=== PATIENT | female | born 1990 | race American Indian/Alaskan Native ===

== ENCOUNTER 2018-05-25 23:26 | Inpatient (IN) | payer MEDICAID ==
[2018-05-25 23:32] VITALS: BMI 37.5
--- NOTE | 2018-05-25 23:44 | ED PDOC ---
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 Patient also mentioned that earlier she had abdominal pain, she has no abdominal pain now. Reports no fever, chills, N/V/D, urinary symptoms, vaginal bleeding, or vaginal d/c currently. Reports that she is not sexually active. <Cari Mayer PA-C - Last Filed: 05/26/18 00:55> <Parvez Casey - Last Filed: 05/26/18 05:47> - General Chief Complaint: GI Problem Time Seen by Provider: 05/25/18 23:29 Past Medical History - Infectious Disease Hx of Infectious Diseases: None - Psychiatric Hx Substance Use: No - Anesthesia Hx Anesthesia: No <Cari Mayer PA-C - Last Filed: 05/26/18 00:55> Family/Social History Family/Social History: No Known Family HX Smoking Status: Never Smoked Hx Alcohol Use: No Hx Substance Use: No <Cari Mayer PA-C - Last Filed: 05/26/18 00:55> Allergies/Home Meds <Cari Mayer PA-C - Last Filed: 05/26/18 00:55> <Parvez Casey - Last Filed: 05/26/18 05:47> Allergies/Adverse Reactions: Allergies No Known Allergies Allergy (Verified 05/25/18 23:32) Review of Systems - Review of Systems Constitutional: absent: Fatigue, Fevers Respiratory: absent: SOB, Cough Cardiovascular: absent: Chest Pain, Palpitations Gastrointestinal: Abdominal Pain. absent: Vomiting Genitourinary Female: Vaginal Discharge. absent: Dysuria, Frequency Musculoskeletal: absent: Arthralgias, Back Pain Skin: absent: Rash, Skin Lesions <Cari Mayer PA-C - Last Filed: 05/26/18 00:55> Physical Exam Appearance: Positive for: Well-Appearing, Non-Toxic, Comfortable Pain Distress: None Mental Status: Positive for: Alert and Oriented X 3 - Systems Exam Head: Present: Atraumatic, Normocephalic Pupils: Present: PERRL Extroacular Muscles: Present: EOMI Conjunctiva: Present: Normal Mouth: Present: Moist Mucous Membranes Neck: Present: Normal Range of Motion Respiratory/Chest: Present: Clear to Auscultation, Good Air Exchange. No: Respiratory Distress, Accessory Muscle Use Cardiovascular: Present: Regular Rate and Rhythm, Normal S1, S2. No: Murmurs Abdomen: No: Tenderness, Distention, Peritoneal Signs Back: Present: Normal Inspection Upper Extremity: Present: Normal Inspection. No: Cyanosis, Edema Lower Extremity: Present: Normal Inspection. No: Edema Neurological: Present: GCS=15, CN II-XII Intact, Speech Normal Skin: Present: Warm, Dry, Normal Color. No: Rashes Psychiatric: Present: Alert, Oriented x 3, Normal Insight, Normal Concentration <Cari Mayer PA-C - Last Filed: 05/26/18 00:55> Medical Decision Making ED Course and Treatment: 05/25/18 23:44 Plan : - Uhcg - UA - Urine cx 05/26/18 00:37 Uhcg (-) UA +trace blood, (-) UTI. On reevaluation, patient remains awake alert and oriented 3 in no acute distress, reports no nausea, abdominal pain, vaginal bleeding or d/c. Results d/w the patient. Advised to follow up with the clinic in 1-2 days without fail. Return to the emergency room at any time for any new or worsening symptoms. Patient states she fully agrees with and understands discharge instructions. States that she agrees with the plan and disposition. Verbalized and repeated discharge instructions and plan. I have given the patient opportunity to ask any additional questions. <Cari Mayer PA-C - Last Filed: 05/26/18 00:55> ED Course and Treatment: 05/26/18 01:55 Pt now complaining of hearing voices. PES called. 05/26/18 05:28 Pt seen and evaluated by ERWIN Zepeda, who discussed case with psychiatrist retail consultant. Pt to be screened for involuntary admission at [facility]. 05/26/18 07:[address] Neal, pending [facility] PES screening and disposition. - Lab Interpretations Lab Results: Urine Color Yellow (YELLOW) 05/25/18 23:50 Urine Appearance Clear (CLEAR) 05/25/18 23:50 Urine pH 6.0 (4.7-8.0) 05/25/18 23:50 Ur Specific [place] >= 1.030 (1.005-1.035) 05/25/18 23:50 Urine Protein Negative mg/dL (<30 mg/dL) 05/25/18 23:50 Urine Glucose (UA) Negative mg/dL (NEGATIVE) 05/25/18 23:50 Urine Ketones Negative mg/dL (NEGATIVE) 05/25/18 23:50 Urine Blood Trace-intact (NEGATIVE) H 05/25/18 23:50 Urine Nitrate Negative (NEGATIVE) 05/25/18 23:50 Urine Bilirubin Negative (NEGATIVE) 05/25/18 23:50 Urine Urobilinogen 0.2 E.U./dL (<1 E.U./dL) 05/25/18 23:50 Ur Leukocyte Esterase Negative [place]abb[place]/uL (NEGATIVE) 05/25/18 23:50 Urine RBC 0 - 2 /hpf (0-2) 05/25/18 23:50 Urine WBC 1 - 3 /hpf (0-6) 05/25/18 23:50 Ur Epithelial Cells 4 - 5 /hpf (0-5) 05/25/18 23:50 Urine Bacteria Small /hpf (NONE) 05/25/18 23:50 <Parvez Casey - Last Filed: 05/26/18 05:47> - PA / [employer]ER [employer]LE [employer] / Resident Statement / has reviewed & agrees with the documentation as recorded. <Cari Mayer PA-C - Last Filed: 05/26/18 00:55> Disposition/Present on Arrival - Present on Arrival Any Indicators Present on Arrival: No History of DVT/PE: No History of Uncontrolled Diabetes: No Urinary Catheter: No History of Decub. Ulcer: No History Surgical Site Infection Following: None - Disposition Have Diagnosis and Disposition been Completed?: Yes Disposition Time: 00:30 Patient Plan: Discharge <Cari Mayer PA-C - Last Filed: 05/26/18 00:55> - Disposition Disposition Time: 07:00 Patient Plan: Transfer To <Parvez Casey - Last Filed: 05/26/18 05:47> - Disposition Diagnosis: Vaginal discharge, Suicidal ideations Patient Problems: Current Active Problems Problem Status Onset Vaginal discharge Acute Condition: STABLE Discharge Instructions (ExitCare): Vaginal Discharge in Adults Prescriptions: Ondansetron ODT [Zofran ODT] 4 mg PO DAILY PRN #20 odt PRN Reason: Nausea/Vomiting Referrals: [facility] [Outside] - Follow up with primary [facility] [Outside] - Follow up with primary Forms: [employer] (Slovenian)
[2018-05-26] LABS: URINE BILIRUBIN NEGATIVE (NEGATIVE); URINE BLOOD TRACE-INTACT (NEGATIVE); URINE GLUCOSE (UA) NEGATIVE (NEGATIVE); URINE LEUKOCYTE ESTERASE NEGATIVE Leu/uL (NEGATIVE); URINE PROTEIN NEGATIVE mg/dL (<30 mg/dL); URINE UROBILINOGEN 0.2 E.U./dL (<1 E.U./dL)
[2018-05-26 00:06] LABS: URINE APPEARANCE CLEAR (CLEAR); URINE COLOR YELLOW (YELLOW)
[2018-05-26 00:40] LABS: URINE RBC 0 - 2 /hpf (0-2)
[2018-05-26 00:43] LABS: URINE BACTERIA SMALL /hpf
[2018-05-26 02:30] LABS: BASO # 0.05 K/mm3 (0.0-2.0); BASO % 0.4 % (0.0-3.0); EOS # 0.2 (0.0-0.7); EOS % 2.1 % (1.5-5.0); HEMOGLOBIN 11.7 g/dL (12.0-16.0); LYMPH # 4.6 (1.2-3.4); LYMPH % 39.8 % (22.0-35.0); MEAN CELL VOLUME 71.4 fl (80.0-105.0); MEAN CORPUSCULAR HEMOGLOBIN 22.3 pg (25.0-35.0); MEAN CORPUSCULAR HGB CONC 31.2 g/dl (31.0-37.0); MEAN PLATELET VOLUME 9.9 fl (7.0-11.0); MONO # 0.6 (0.1-0.6); MONO % 5.1 % (1.0-6.0); RBC 5.25 10^6/uL (3.5-6.1); RED CELL DISTRIBUTION WIDTH 14.8 % (11.5-14.5); WHITE BLOOD COUNT 11.5 10^3/uL (4.5-11.0)
[2018-05-26 02:34] LABS: ALB/GLOB RATIO 1.2 (1.1-1.8); ALBUMIN 4.6 g/dL (3.0-4.8); ALT/SGPT 7 U/L (7-56); AST/SGOT 24 U/L (14-36); BLOOD UREA NITROGEN 14 mg/dL (7-21); CALCIUM 9.8 mg/dL (8.4-10.5); GFR NON-AFRICAN AMERICAN > 60
[2018-05-26 03:21] LABS: BARBITURATES, UR NEGATIVE (NEGATIVE); BENZODIAZEPINES, UR NEGATIVE (NEGATIVE); OPIATES, UR NEGATIVE (NEGATIVE); PHENCYCLIDINE, UR NEGATIVE (NEGATIVE)
[2018-05-26 03:23] LABS: ACETAMINOPHEN < 10.0 ug/ml (10.0-20.0); SALICYLATE < 1 mg/dL (2.0-20.0)
--- NOTE | 2018-05-26 07:04 | ED PDOC ---
Physical Exam Vital Signs Reviewed: Yes Vital Signs Temp Pulse Resp BP Pulse Ox 05/26/18 05:00 77 16 127/71 97 05/26/18 03:00 76 18 124/72 97 05/26/18 00:45 80 18 127/82 98 05/25/18 23:45 98.1 F 89 18 137/84 98 Temperature: Afebrile Blood Pressure: Normal Pulse: Regular Respiratory Rate: Normal Appearance: Positive for: Well-Appearing, Non-Toxic, Comfortable Medical Decision Making ED Course and Treatment: 05/26/18 07:[address] Casey with patient pending [facility] screening. 05/26/18 10:05 Spoke to PES sawyer helper who states patient may be discharged if [facility] does not accept for inpatient psychiatric admission 05/26/18 11:29 [facility] screener evaluated patient and does not deem her eligible for admission at this time. Patient adamantly stating she will kill herself. PES called again. 05/26/18 12:53 Patient is evaluated by Dr. Dior(psychiatry) at the bedside who states she will accept patient for admission. - Lab Interpretations Lab Results: Total Bilirubin 0.3 mg/dL (0.2-1.3) 05/26/18 02:08 AST 24 U/L (14-36) 05/26/18 02:08 ALT 7 U/L (7-56) 05/26/18 02:08 Alkaline Phosphatase 90 U/L (38-126) 05/26/18 02:08 Total Protein 8.5 g/dL (5.8-8.3) H 05/26/18 02:08 Albumin 4.6 g/dL (3.0-4.8) 05/26/18 02:08 Globulin 3.9 gm/dL 05/26/18 02:08 Albumin/Globulin Ratio 1.2 (1.1-1.8) 05/26/18 02:08 Urine Color Yellow (YELLOW) 05/25/18 23:50 Urine Appearance Clear (CLEAR) 05/25/18 23:50 Urine pH 6.0 (4.7-8.0) 05/25/18 23:50 Ur Specific [place] >= 1.030 (1.005-1.035) 05/25/18 23:50 Urine Protein Negative mg/dL (<30 mg/dL) 05/25/18 23:50 Urine Glucose (UA) Negative mg/dL (NEGATIVE) 05/25/18 23:50 Urine Ketones Negative mg/dL (NEGATIVE) 05/25/18 23:50 Urine Blood Trace-intact (NEGATIVE) H 05/25/18 23:50 Urine Nitrate Negative (NEGATIVE) 05/25/18 23:50 Urine Bilirubin Negative (NEGATIVE) 05/25/18 23:50 Urine Urobilinogen 0.2 E.U./dL (<1 E.U./dL) 05/25/18 23:50 Ur Leukocyte Esterase Negative Gabbie/uL (NEGATIVE) 05/25/18 23:50 Urine RBC 0 - 2 /hpf (0-2) 05/25/18 23:50 Urine WBC 1 - 3 /hpf (0-6) 05/25/18 23:50 Ur Epithelial Cells 4 - 5 /hpf (0-5) 05/25/18 23:50 Urine Bacteria Small /hpf (NONE) 05/25/18 23:50 05/26/18 02:08 05/26/18 02:08 Lab Results 05/26/18 02:08: Alcohol, Quantitative < 10 05/26/18 02:08: Salicylates < 1 L, Acetaminophen < 10.0 L 05/26/18 02:08: Sodium 140, Potassium 3.8, Chloride 105, Carbon Dioxide 27, Anion Gap 12, BUN 14, Creatinine 0.8, Est GFR ( Amer) > 60, Est GFR (Non- Af Amer) > 60, Random Glucose 78, Calcium 9.8, Magnesium 2.0, Total Bilirubin 0.3, AST 24, ALT 7, Alkaline Phosphatase 90, Total Protein 8.5 H, Albumin 4.6, Globulin 3.9, Albumin/Globulin Ratio 1.2 05/26/18 02:08: WBC 11.5 H, RBC 5.25, Hgb 11.7 L, Hct 37.5, MCV 71.4 L, MCH 22.3 L, MCHC 31.2, RDW 14.8 H, Plt Count 334, MPV 9.9, Neut % (Auto) 52.6, Lymph % (Auto) 39.8 H, [place] % (Auto) 5.1, Eos % (Auto) 2.1, Baso % (Auto) 0.4, Lymph # (Auto) 4.6 H, [place] # (Auto) 0.6, Eos # (Auto) 0.2, Baso # (Auto) 0.05, Absolute Neuts (auto) 6.04 05/26/18 02:00: Urine Opiates Screen Negative, Urine Methadone Screen Negative, Ur Barbiturates Screen Negative, Ur Phencyclidine Scrn Negative, Ur Amphetamines Screen Negative, U Benzodiazepines Scrn Negative, U Oth Cocaine Metabols Negative, U Cannabinoids Screen Positive H 05/25/18 23:50: Urine Color Yellow, Urine Appearance Clear, Urine pH 6.0, Ur Specific [place] >= 1.030, Urine Protein Negative, Urine Glucose (UA) Negative, Urine Ketones Negative, Urine Blood Trace-intact H, Urine Nitrate Negative, Urine Bilirubin Negative, Urine Urobilinogen 0.2, Ur Leukocyte Esterase Negative, Urine RBC 0 - 2, Urine WBC 1 - 3, Ur Epithelial Cells 4 - 5, Urine Bacteria Small I have reviewed the lab results: Yes Disposition/Present on Arrival - Present on Arrival Any Indicators Present on Arrival: No History of DVT/PE: No History of Uncontrolled Diabetes: No Urinary Catheter: No History of Decub. Ulcer: No History Surgical Site Infection Following: None - Disposition Have Diagnosis and Disposition been Completed?: Yes Diagnosis: Vaginal discharge, Malingering, Acute depression Disposition: HOSPITALIZED Disposition Time: 12:53 Patient Plan: Admission, Discharge Patient Problems: Current Active Problems Problem Status Onset Vaginal discharge Acute Malingering Acute Condition: STABLE Discharge Instructions (ExitCare): Depression, Adult (DC), Vaginal Discharge in Adults Prescriptions: Ondansetron ODT [Zofran ODT] 4 mg PO DAILY PRN #20 odt PRN Reason: Nausea/Vomiting Referrals: [facility] [Outside] - Follow up with primary [facility] [Outside] - Follow up with primary Forms: [employer] (Danish)
--- NOTE | 2018-05-26 09:17 | CARD ---
APPROVED REPORT Date of service: 05/26/2018 EKG Measurement Heart [id number] <Conclusion> Normal sinus rhythm Normal ECG
--- NOTE | 2018-05-26 12:58 | CON ---
DATE OF CONSULTATION: 05/26/2018 HISTORY OF PRESENT ILLNESS: In short, the patient is a 27-year-old female with not known previous psychiatric history. The patient came to the hospital for abdominal pain, vaginal bleeding, vaginal discharge. After the patient got to know that she is medically cleared for discharge, the patient started to complain of hearing voices and did not feel safe to be discharged. This automotive service writer got involved into the patient care because the patient presented uncooperative. She is not talking. The patient was seen by PES worker and psychiatrist on-call, Dr. Gonzales, recommended screening by [facility]. This automotive service writer attempted to speak to the patient in the morning time together with medical students as well as to residents. The patient presented to be uncooperative, unwilling to talk to this automotive service writer. Personal hygiene is very poor. The patient is malodorous. The patient laying down with eyes closed and not talking. Collateral information was obtained from the nursing staff. As per nursing staff, the patient was talking and was able to provide information at the time of admission, but later on, the patient became uncooperative and staff feels that most likely the patient has secondary gain. Besides that, the patient does not have history at [facility], and there is no option to review the past history. LABORATORY DATA: Labs reviewed which showed mild leukocytosis. Urinalysis showed blood trace. Toxicology was positive for cannabis. PHYSICAL EXAMINATION: VITAL SIGNS: Stable. MEDICATIONS: Reviewed. MENTAL STATUS EXAMINATION: As this automotive service writer described above, the patient has very poor personal hygiene, laying down with eyes closed, not participating in interview. IMPRESSION AND PLAN: Rule out negative symptoms of psychosis, rule out mood spectrum disorder, rule out malingering. Meanwhile, we will continue screening by [facility] because the patient does not want to talk, does not want to respond to any of the questions. We will follow up and advise accordingly. Thank you very much for letting me participate in the care of your patient. Addendum: [facility] did not accept pt, pt was willing to be admitted. pt was transferred to psych unit uneventfully, pt was started on risperdal and PRN meds. Barby Roper MD [facility] # [id number] MTDD
--- NOTE | 2018-05-26 13:44 | RAD ---
Date of service: 05/26/2018 HISTORY: psych clearance COMPARISON: No prior. FINDINGS: LUNGS: No active pulmonary disease. PLEURA: No significant pleural effusion identified, no pneumothorax apparent. CARDIOVASCULAR: No aortic atherosclerotic calcification present. Normal cardiac size. No pulmonary vascular congestion. OSSEOUS STRUCTURES: No significant abnormalities. VISUALIZED UPPER ABDOMEN: Normal. OTHER FINDINGS: None. IMPRESSION: No active disease.
[2018-05-26] MEDS ORDERED: Alum-Mag Hydrox-Simethicone Susp (30 mL) PO PRN (19:43)
[2018-05-26] MEDS ORDERED: Magnesium Hydroxide Susp 30 ml UD PO PRN (19:43)
--- NOTE | 2018-05-26 21:07 | PCM.BM ---
<Alex Klineel - Last Filed: 05/26/18 21:03> Treatment Plan Problems - Problems identified on initial assessmt Auditory Hallucinations Date Initiated: 05/26/18 Time Initiated: 19:00 Assessment reference: NA Status: Active Priority: 1 Altered Thought Process Date Initiated: 05/26/18 Time Initiated: 19:00 Assessment reference: NA Status: Active Priority: 2 Impaired Communication Date Initiated: 05/26/18 Time Initiated: 19:00 Assessment reference: NA Status: Active Priority: 3 Self Care Deficit Date Initiated: 05/26/18 Time Initiated: 19:00 Assessment reference: NA Status: Active Priority: 4 Ineffective Coping Date Initiated: 05/26/18 Time Initiated: 19:00 Assessment reference: NA Status: Active Priority: 5 Treatment assets and liabiliti Patient Assests: ADL independent, negotiates basic needs, good interpersonal skills Patient Liabilities: live alone, financial problems, poor support system - Milieu Protocol Maintain good personal hygiene: daily Encourage regular showers, every shift Remind patient to perform daily oral care, every shift Assist patient to perform ADL's Maintain personal safety: every shift Educate patient to report safety concerns to staff, every shift Monitor environment for contraband/sharps Medication safety: Monitor for expected outcome, potential side effects: every shift, Assess barriers to learning: every shift, Assess readiness for medication education: every shift Family Contact Family involvement: Suraj/NII not involved Family contact: Patient declines to allow family contact at present - Goals for Treatment Patient goals for treatment: get better Discharge/Continuing Care - Education Needs Education Needs: Patient Medication, Patient Diagnosis/Disease Process, Patient Coping Skills, Patient Anger Management skills, Patient Placement options, Patient Community resources, Patient Activities of Daily Living, Patient Pain, Patient Nutrition, Patient Uses of Medical Equipment, Patient Health Practices/Safety, Patient Personal Hygiene/Grooming, Patient Aftercare Safety Plan - Discharge Discharge Criteria: Tolerates medication w/o severe side effects <Sara Cortez - Last Filed: 05/27/18 11:55> Family Contact Family contact: Patient declines to allow family contact at present <Barby Roper - Last Filed: 05/27/18 14:17> - Diagnosis (1) psychosis Status: Acute Interventions: 05/27/18 14:18 Psychoeducation/psychotherapy Psychopharmacology/adjustment of medications as needed/ monitoring possible side effects Evaluate pt on daily basis Compliance with medications and follow up appointments Long acting medication if pt is noncompliant with pill form Suicide and homicide risk assessment and prevention, coping strategies, safety plan Relapse prevention Reduction of symptoms Improve functional status Possible assertive community treatment Cognitive behavioral therapy Family involvement Possible social skill training as outpatient (2) depression Status: Acute Interventions: 05/27/18 14:17 Psychoeducation Psychopharmacology/adjustment of medications as needed/ monitoring possible side effects Evaluate pt on daily basis Compliance with medications and follow up appointments Suicide and homicide risk assessment and prevention Relapse prevention Reduction of symptoms Improve functional status Family involvement As outpatient: cognitive behavioral therapy (3) Vaginal discharge Status: Acute Interventions: 05/27/18 14:18 Pt will be seen by medical team Additional consultation by specialists as needed Lab work as needed (CBC, CMP, TSH, free T4, UA, Urine test for females as needed) CXR as needed EKG <Heidi Odom - Last Filed: 05/30/18 15:26>
[2018-05-27 08:04] LABS: GLUCOSE,FASTING 95 mg/dL (65-110); HDL CHOLESTEROL 48 mg/dL (29-60)
[2018-05-27 08:14] LABS: LDL CHOLESTEROL 87 mg/dL (0-129)
--- NOTE | 2018-05-27 14:17 | PCM.PSYCH ---
Initial Psychiatric Evaluation - Initial Psychiatric Evaluation Type of Admission: Voluntary Legal Status: Capacity Chief Complaint (in patient's own words): "I heard voices, kill yourself/hang herself". Patient's Reaction to Hospitalization: 05/26/18 02:08 05/26/18 02:08 Lab Results 05/27/18 07:40: Fasting Glucose 95, Triglycerides 81, Cholesterol 158, LDL Cholesterol Direct 87, HDL Cholesterol 48 05/27/18 07:20: TSH 3rd Generation 0.35 L 05/26/18 02:08: Alcohol, Quantitative < 10 05/26/18 02:08: Salicylates < 1 L, Acetaminophen < 10.0 L 05/26/18 02:08: Sodium 140, Potassium 3.8, Chloride 105, Carbon Dioxide 27, Anion Gap 12, BUN 14, Creatinine 0.8, Est GFR ( Amer) > 60, Est GFR (Non- Af Amer) > 60, Random Glucose 78, Calcium 9.8, Magnesium 2.0, Total Bilirubin 0.3, AST 24, ALT 7, Alkaline Phosphatase 90, Total Protein 8.5 H, Albumin 4.6, Globulin 3.9, Albumin/Globulin Ratio 1.2 05/26/18 02:08: WBC 11.5 H, RBC 5.25, Hgb 11.7 L, Hct 37.5, MCV 71.4 L, MCH 22.3 L, MCHC 31.2, RDW 14.8 H, Plt Count 334, MPV 9.9, Neut % (Auto) 52.6, Lymph % (Auto) 39.8 H, [place] % (Auto) 5.1, Eos % (Auto) 2.1, Baso % (Auto) 0.4, Lymph # (Auto) 4.6 H, [place] # (Auto) 0.6, Eos # (Auto) 0.2, Baso # (Auto) 0.05, Absolute Neuts (auto) 6.04 05/26/18 02:00: Urine Opiates Screen Negative, Urine Methadone Screen Negative, Ur Barbiturates Screen Negative, Ur Phencyclidine Scrn Negative, Ur Amphetamines Screen Negative, U Benzodiazepines Scrn Negative, U Oth Cocaine Metabols Negative, U Cannabinoids Screen Positive H 05/25/18 23:50: Urine Color Yellow, Urine Appearance Clear, Urine pH 6.0, Ur Specific [place] >= 1.030, Urine Protein Negative, Urine Glucose (UA) Negative, Urine Ketones Negative, Urine Blood Trace-intact H, Urine Nitrate Negative, Urine Bilirubin Negative, Urine Urobilinogen 0.2, Ur Leukocyte Esterase Negative, Urine RBC 0 - 2, Urine WBC 1 - 3, Ur Epithelial Cells 4 - 5, Urine Bacteria Small Vital Signs Temp Pulse Resp BP Pulse Ox 05/27/18 06:14 98.2 F 70 16 133/77 05/26/18 17:45 98.5 F 90 18 126/85 100 05/26/18 15:02 76 18 107/74 100 05/26/18 13:45 72 16 110/72 99 05/26/18 12:30 77 16 122/69 100 05/26/18 10:32 97.9 F 82 16 129/82 99 05/26/18 05:00 77 16 127/71 97 05/26/18 03:00 76 18 124/72 97 05/26/18 00:45 80 18 127/82 98 05/25/18 23:45 98.1 F 89 18 137/84 98 History of Present Illness and Precipitating Events: shortly pt is 27 yo female with not known previous psych h/o, came to the ED with c/o 1 episode of clear vaginal discharge, abdominatl pain, pt was cleared by medical team, after that in ED pt reported "not feeling safe, hearing voices", PES was called, pt was in catatonic stage, was not able to provide any h/o, [facility] was contacted for involuntary commitment, pt was not accepted by [facility], this wrier evaluated pt in ED, pt presented to be disorganized, poor hygiene, said that she is hearing voices "hang yourself-kill yourself", pt required further evaluation and stabilization, med management, observation. Patient was seen at the treatment team meeting, patient presented to be guarded, paranoid, with psychomotor retardation, no meaningful conversation possible because severe thought blocking, and disorganized thoughts, majority of the answers "I do not know, I do not remember." Patient had very poor personal hygiene, very strong body odor, fair ADLs. Patient reported that she feels "so-so", patient reported that she came here for auditory hallucinations, but when this health underwriter asked about her primary complaint in ED (abdominal pain and vagina discharges), pt said that it was primary problem. pt said that abdominal pain resolved, patient also reported that voices are not bothering her today. Patient goal for treatment is "to stop hearing those voices." In regards of abdominal pain, patient reported that she gave to her son approximately 1 months ago at present moment her son is in foster care, DYFS involvement, son was taken away from the hospital. Will call for medical consult because recent , vaginal discharges, abdominal pain, foul smell are concerning to this health underwriter. Patient reported that she lives with her friend in [place], at the same time patient said "I do not remember what year", patient does not remember how she ended up in the hospital, patient also reported that she does not remember phone numbers for her family "it is too early, may be later on it will come back to me, you could speak to my sister September". Later one patient said that she is homeless. Patient reports having some difficulty with memory. Patient reports last completing the 12th grade but states she did not graduate high school. Patient denies drug use. Patient reports drinking alcohol 3x per week. Patient reports drinking 1 drink; tequila. Patient reports smoking 4 cigarettes per day. Patient refused Nicotine patch. Urine drug screen is positive for cannabis. Patient reports her boyfriend financially supports her. Patient reports her boyfriend is not aware of patient being hospitalized. Patient states that she does not remember. Patient reports no hx of abuse. Past psychiatric history: Denied. Medical history: Recent , vaginal discharges, abdominal pain. Family history: Patient denied. As per nursing report patient has history of incarcerations. By the end of the interview patient did not know where to go, appeared to be confused. 05/26/18 02:08 05/26/18 02:08 Lab Results 05/27/18 07:40: Fasting Glucose 95, Triglycerides 81, Cholesterol 158, LDL Cholesterol Direct 87, HDL Cholesterol 48 05/27/18 07:20: TSH 3rd Generation 0.35 L 05/26/18 02:08: Alcohol, Quantitative < 10 05/26/18 02:08: Salicylates < 1 L, Acetaminophen < 10.0 L 05/26/18 02:08: Sodium 140, Potassium 3.8, Chloride 105, Carbon Dioxide 27, Anion Gap 12, BUN 14, Creatinine 0.8, Est GFR ( Amer) > 60, Est GFR (Non- Af Amer) > 60, Random Glucose 78, Calcium 9.8, Magnesium 2.0, Total Bilirubin 0.3, AST 24, ALT 7, Alkaline Phosphatase 90, Total Protein 8.5 H, Albumin 4.6, Globulin 3.9, Albumin/Globulin Ratio 1.2 05/26/18 02:08: WBC 11.5 H, RBC 5.25, Hgb 11.7 L, Hct 37.5, MCV 71.4 L, MCH 22.3 L, MCHC 31.2, RDW 14.8 H, Plt Count 334, MPV 9.9, Neut % (Auto) 52.6, Lymph % (Auto) 39.8 H, [place] % (Auto) 5.1, Eos % (Auto) 2.1, Baso % (Auto) 0.4, Lymph # (Auto) 4.6 H, [place] # (Auto) 0.6, Eos # (Auto) 0.2, Baso # (Auto) 0.05, Absolute Neuts (auto) 6.04 05/26/18 02:00: Urine Opiates Screen Negative, Urine Methadone Screen Negative, Ur Barbiturates Screen Negative, Ur Phencyclidine Scrn Negative, Ur Amphetamines Screen Negative, U Benzodiazepines Scrn Negative, U Oth Cocaine Metabols Ne gative, U Cannabinoids Screen Positive H 05/25/18 23:50: Urine Color Yellow, Urine Appearance Clear, Urine pH 6.0, Ur Specific [place] >= 1.030, Urine Protein Negative, Urine Glucose (UA) Negative, Urine Ketones Negative, Urine Blood Trace-intact H, Urine Nitrate Negative, Urine Bilirubin Negative, Urine Urobilinogen 0.2, Ur Leukocyte Esterase Nega tive, Urine RBC 0 - 2, Urine WBC 1 - 3, Ur Epithelial Cells 4 - 5, Urine Bacteria Small Vital Signs Temp Pulse Resp BP Pulse Ox 05/27/18 06:14 98.2 F 70 16 133/77 05/26/18 17:45 98.5 F 90 18 126/85 100 05/26/18 15:02 76 18 107/74 100 05/26/18 13:45 72 16 110/72 99 05/26/18 12:30 77 16 122/69 100 05/26/18 10:32 97.9 F 82 16 129/82 99 05/26/18 05:00 77 16 127/71 97 05/26/18 03:00 76 18 124/72 97 05/26/18 00:45 80 18 127/82 98 05/25/18 23:45 98.1 F 89 18 137/84 98 The patient failed the outpatient lower level of care: Yes Current Medications: Active Medications Generic Name Dose Route Start Last Admin Trade Name Freq PRN Reason Stop Dose Admin Acetaminophen 650 mg 05/26/18 19:43 Tylenol 325mg Tab PO Q6H PRN Pain, moderate (4-7) Al Hydrox/Mg Hydrox/Simethicone 30 ml 05/26/18 19:43 Maalox Plus 30 Ml PO DAILY PRN Indigestion / Heartburn Lorazepam 2 mg 05/26/18 19:45 Ativan PO Q6H PRN Anxiety Protocol Lorazepam 2 mg 05/26/18 19:46 Ativan IM Q6H PRN Severe Agitation Protocol Magnesium Hydroxide 30 ml 05/26/18 19:43 Milk Of Magnesia PO DAILY PRN Constipation Risperidone 0.5 mg 05/26/18 22:00 05/27/18 10:46 Risperdal Tab PO 0.5 mg AMHS HERIBERTO Administration Protocol Trazodone HCl 50 mg 05/26/18 19:44 Desyrel PO HS PRN Insomnia Ziprasidone 20 mg 05/26/18 19:48 Geodon Cap PO Q6H PRN Agitation Protocol Ziprasidone 20 mg 05/26/18 19:49 Geodon Inj IM Q6H PRN Severe Agitation Protocol Present on Admission - Present on Admission Any Indicators Present on Admission: No Review of Systems - Review of Systems Systems not reviewed;Unavailable: Acuity of Condition - Constitutional Constitutional: As Per HPI - EENT Eyes: As Per HPI Ears: As Per HPI Nose/Mouth/Throat: As Per HPI - Breasts Breasts: As Per HPI - Cardiovascular Cardiovascular: As Per HPI - Respiratory Respiratory: As Per HPI - Gastrointestinal Gastrointestinal: As Per HPI - Genitourinary Genitourinary: As Per HPI - Reproductive: Female Reproductive:Female: As Per HPI - Menstruation Menstruation: As Per HPI - Musculoskeletal Musculoskeletal: As Per HPI - Integumentary Integumentary: As Per HPI - Neurological Neurological: As Per HPI - Psychiatric Psychiatric: As Per HPI - Endocrine Endocrine: As Per HPI - Hematologic/Lymphatic Hematologic: As Per HPI Past Patient History - Past Psychiatric History Previous Treatment History: None Prior Professional Help: See HPI Prior Psychiatric Treatment: See HPI At what hospital: See HPI Duration: See HPI Nature of Treatment: See HPI Explanation of prior treatment: See HPI - PSYCHIATRIC Hx Psychophysiologic Disorder: No Hx Substance Use: No - Infectious Disease Hx of Infectious Diseases: None - SURGICAL HISTORY Hx Surgeries: No Hx Section: Yes - ANESTHESIA Hx Anesthesia: No - Medical/Surgical History Reviewed & confirmed: by wv Meds Allergies/Adverse Reactions: Allergies Allergy/AdvReac Type Severity Reaction Status Date / Time No Known Allergies Allergy Verified 05/26/18 20:57 Mental Status Examination - Personal Presentation Personal Presentation: Looks older than stated age - Affect Affect: Flat - Motor Activity Motor Activity: Psychomotor Retardation - Reliability in Providing Information Reliability in Providing Information: Poor, due to alteration in thoughts, Poor, due to altered mood, Poor, due to cognitve impairment - Speech Speech: Disorganized - Mood Mood: Depressed - Formal Thought Process Formal Thought Process: Hallucinations - Obsessions/Compulsions Obsessions: None Compulsions: None - Cognitive Functions Orientation: Person, Place Sensorium: Alert Attention/Concentration: Easily distracted Abstract Thinking: [place] Judgement: Intact, as evidence by: Insight regarding need for hospitalization - Risk Risk: Self-mutilation, Diminished functioning - Strength & Assets Inventory Strength & Assets Inventory: Cooperative, Other (Physical health, no history of suicidal attempts, no history of psych admissions) - Limitations Limitations: Other (Patient is homeless, no support) Psychiatric Physical Exam - Physical Exam Reviewed and confirmed: Emergency Department Physical Exam Results - Vital Signs Recent Vital Signs: Last Vital Signs Temp 98.2 F 05/27/18 06:14 Pulse 70 05/27/18 06:14 Resp 16 05/27/18 06:14 BP 133/77 05/27/18 06:14 Pulse Ox 100 05/26/18 17:45 - Labs Result Diagrams: 05/26/18 02:08 05/26/18 02:08 Labs: Laboratory Results - last 24 hr 05/27/18 05/27/18 07:20 07:40 Fasting Glucose 95 Triglycerides 81 Cholesterol 158 LDL Cholesterol Direct 87 HDL Cholesterol 48 TSH 3rd Generation 0.35 L - EKG Data EKG Interpreted by: ER Physician EKG shows normal: Sinus rhythm DSM Plan - DSM 5 DSM 5 Diagnosis: Rule out psychosis Rule out depression Rule out major depressive disorder with psychosis cannabis abuse, rule out substance-induced psychosis - Recommended/Plan of Treatment Treatment Recommendations and Plan of Treatment: Milieu/structure/supportive therapy SW consultation for discharge plan and social issues Med management: Risperdal 0.5 mg twice a day for psychosis As needed medication Medical consult requested Family involvement Follow up on labs Will monitor closely Pt was educated about risk/benefits and alternatives of medications, coping strategies (safety plan, suicide prevention), relapse prevention, importance of follow up with psychiatrist and therapist, stay away from drugs/alcohol/smoking Projected ELOS: 7 days Prognosis: Guarded Discharge Plan and Discharge Criteria: Pt will be not depressed or manic, will be more hopeful, will be not psychotic or anxious, will be tolerating medications well, will not have major side effects, will be able to function, will not pose threat to self or others. - Tobacco Cessation Tobacco Use Status for the last 30 days: Light User(<=4 cigs daily, cigar/pipes not daily,or smokeless tobacco) Tobacco Use Treatment Practical Counseling Provided: Yes Tobacco Use Treatment FDA-Approved Cessation Medication Provided: Yes Reason for not providing: Patient refused tobacco cessation medication - Alcohol or Substance Abuse Does the patient have an Alcohol or Substance Abuse Disorder: Yes Initial Psych Certification - Initial Certification I certify that the inpatient psychiatric facility admission was medically necessary for either: Treatment which could reasonbly be expected to improve pt's condition I estimate of hospitalization is necessary for proper treatment of the patient: 7 Unit of Time: Days
--- NOTE | 2018-05-28 09:34 | PCM.PYCHPN ---
Psychiatric Progress Note - Psychiatric Progress Note Patient seen today, length of contact: 25 min Problems Identified/Issues Discussed: I reviewed assessment and recent notes. Patient was interviewed at bedside. She appears unkempt, disengaged and vague. Affect is guarded with continued PMR. Responses are brief but generally relevant to questioning. She tells me that she is feeling a little better and denies any new issues. She is still hallucinating and today she complains of "seeing things, people, trees in my room". Affect is constricted and a little flat. Patient has been in tenuous control. Denies side effects, discomfort or pain at this time. Sleep was restless last night. Staff have noted patient's poor personal hygiene and lack of motivation in her grooming since arriving on the unit. There were no behavioral issues overnight. Diagnostic Results: Rule out psychosis Rule out depression Rule out major depressive disorder with psychosis cannabis abuse, rule out substance-induced psychosis Medication Change: Yes (Risperdal increased and ativan started) Medical Record Reviewed: Yes Mental Status Examination - Cognitive Function Orientation: Person, Place Attention: Poor Concentration: Poor Association: Loose Fund of Knowledge: Poor - Mood Mood: Depressed - Affect Affect: Flat - Formal Thought Process Formal Thought Process: Hallucinations ("people and trees in my room") - Suicidal Ideation Suicidal Ideation: No - Homicidal Ideation Homicidal Ideation: No Goal/Treatment Plan - Goal/Treatment Plan Progress Toward Problem(s) and Goals/Treatment Plan: * c/w current tx and plan * Risperdal increased to 1 mg po AMHS, added ativan 0.5 mg po AMHS to help with fluency and for EPS prophylaxis * No new labs results noted thus far this weekend * Vitals reviewed and noted below: Selected Entries 05/26/18 05/27/18 17:45 06:14 Temperature 98.5 F 98.2 F Pulse Rate 90 70 Respiratory 18 16 Rate Blood Pressure 126/85 133/77
[2018-05-28 09:38] LABS: HEMOGLOBIN 10.7 g/dL (12.0-16.0); MEAN CELL VOLUME 72.3 fl (80.0-105.0); MEAN CORPUSCULAR HEMOGLOBIN 21.5 pg (25.0-35.0); MEAN CORPUSCULAR HGB CONC 29.7 g/dl (31.0-37.0); RBC 4.98 10^6/uL (3.5-6.1); RED CELL DISTRIBUTION WIDTH 14.9 % (11.5-14.5); WHITE BLOOD COUNT 6.5 10^3/uL (4.5-11.0)
--- NOTE | 2018-05-28 15:38 | CP.PCM.CON ---
<Maryana Franco - Last Filed: 05/28/18 15:29> History of Present Illness - History of Present Illness History of Present Illness: Maryana Franco, PGY-1, Internal Medicine Consult Note for Dr. Gibson 27 year old female with no relevant past medical history presents to the hospital for vaginal discharge for a few days and suicidal ideations with auditory hallucinations. As per psychiatry, patient recently gave 1 month ago to a baby boy, but her son is currently in foster care with DYFS involvement. Patient's son was taken from the hospital. Patient reports to live with her friend in [place] but does not remember what year it is. Patient was found to be homeless, however. Patient reports her boyfriend financially support her. Patient's boyfriend is not aware of her being hospitalized. Yesterday, upon admission to hospital, patient reported clear vaginal discharge and auditory hallucinations. Today, patient reported that auditory hallucinations were telling her to kill herself. In addition, she says that the voice is still present. Patient currently does not have a plan to hurt herself. At bedside, patient denied vaginal discharge initially, but later reported that she had clear vaginal discharge for a few days which has since resolved. Patient was withdrawn at bedside and reported "no" to almost every question asked. Patient also reported that she had abdominal pain, which has now resolved. She denies any fevers, chills, chest pain, heart palpitations, shortness of breath, nausea, vomiting, constipation, diarrhea, dysuria, hematuria, vaginal itching, or vaginal burning. 12-point ROS was unremarkable except for what was mentioned above. PMH: denies but has had recent delivery PSH: denies FMHx: denies SHx: denies but as per psychiatry note, reports drinking alcohol 3x a week, smoking 4 cigarettes per day, and has a UDS positive for cannabinoids Allergies: NKDA PMD: none Home medications: none Review of Systems - Review of Systems Review of Systems: except for what was mentioned in HPI Past Patient History - Infectious Disease Hx of Infectious Diseases: None - Past Social History Smoking Status: Never Smoked - PSYCHIATRIC Hx Psychophysiologic Disorder: No Hx Substance Use: No - SURGICAL HISTORY Hx Surgeries: No Hx Section: Yes - ANESTHESIA Hx Anesthesia: No Meds Allergies/Adverse Reactions: Allergies Allergy/AdvReac Type Severity Reaction Status Date / Time No Known Allergies Allergy Verified 05/26/18 20:57 - Medications Medications: Current Medications Acetaminophen (Tylenol 325mg Tab) 650 mg PO Q6H PRN PRN Reason: Pain, moderate (4-7) Al Hydrox/Mg Hydrox/Simethicone (Maalox Plus 30 Ml) 30 ml PO DAILY PRN PRN Reason: Indigestion / Heartburn Lorazepam (Ativan) 2 mg PO Q6H PRN; Protocol PRN Reason: Anxiety Lorazepam (Ativan) 2 mg IM Q6H PRN; Protocol PRN Reason: Severe Agitation Lorazepam (Ativan) 0.5 mg PO AMHS HERIBERTO; Protocol Last Admin: 05/28/18 11:47 Dose: 0.5 mg Magnesium Hydroxide (Milk Of Magnesia) 30 ml PO DAILY PRN PRN Reason: Constipation Risperidone (Risperdal Tab) 1 mg PO AMHS HERIBERTO; Protocol Last Admin: 05/28/18 11:47 Dose: 1 mg Trazodone HCl (Desyrel) 50 mg PO HS PRN PRN Reason: Insomnia Last Admin: 05/27/18 21:43 Dose: 50 mg Ziprasidone (Geodon Cap) 20 mg PO Q6H PRN; Protocol PRN Reason: Agitation Ziprasidone (Geodon Inj) 20 mg IM Q6H PRN; Protocol PRN Reason: Severe Agitation Physical Exam - Constitutional Appears: Non-toxic, No Acute Distress, Unkempt Additional comments: withdrawn - Head Exam Head Exam: ATRAUMATIC, NORMAL INSPECTION, NORMOCEPHALIC - Eye Exam Eye Exam: EOMI, PERRL - ENT Exam ENT Exam: Mucous Membranes Moist - Respiratory Exam Respiratory Exam: Clear to Auscultation Bilateral - Cardiovascular Exam Cardiovascular Exam: REGULAR RHYTHM, RRR - GI/Abdominal Exam GI & Abdominal Exam: Normal Bowel Sounds, Soft. absent: Tenderness - Extremities Exam Extremities exam: Positive for: full ROM - Neurological Exam Neurological exam: Alert, CN II-XII Intact - Psychiatric Exam Psychiatric exam: Flat Affect Additional comments: withdrawn - Skin Skin Exam: Dry, Intact Results - Vital Signs Recent Vital Signs: Last Vital Signs Temp 98.2 F 05/27/18 06:14 Pulse 70 05/27/18 06:14 Resp 16 05/27/18 06:14 BP 133/77 05/27/18 06:14 Pulse Ox 100 05/26/18 17:45 - Labs Result Diagrams: 05/28/18 09:10 05/26/18 02:08 Labs: Laboratory Results - last 24 hr 05/27/18 05/28/18 07:20 09:10 WBC 6.5 D RBC 4.98 Hgb 10.7 L Hct 36.0 MCV 72.3 L MCH 21.5 L MCHC 29.7 L RDW 14.9 H Plt Count 293 MPV 10.0 RPR Nonreactive Assessment & Plan - Assessment and Plan (Free Text) Assessment: 27 year old female with no relevant past medical history presents with vaginal discharge and auditory hallucinations with suicidal ideations but no plan. Plan: Vaginal discharge likely 2/2 to bacterial vaginosis -Upon entering patient's room, fishy odor was noted -Will empirically treat for bacterial vaginosis with one time dose of flagyl 2 gm -Ordered HIV, gonorrhea, chlamydia, bacterial vaginosis, and trichomonas cultu res for further evaluation to rule out other causes of vaginal discharge. Unspecified Abdominal tenderness -Patient reports pain has resolved. Auditary hallucinations likely 2/2 to schizophrenia vs. brief psychotic disorder -Continue as per psychiatry management Patient plan discussed with attending. - Date & Time Date: 05/28/18 Time: 15:40 <Misbah Gibson - Last Filed: 05/28/18 16:05> Meds - Medications Medications: Current Medications Acetaminophen (Tylenol 325mg Tab) 650 mg PO Q6H PRN PRN Reason: Pain, moderate (4-7) Al Hydrox/Mg Hydrox/Simethicone (Maalox Plus 30 Ml) 30 ml PO DAILY PRN PRN Reason: Indigestion / Heartburn Lorazepam (Ativan) 2 mg PO Q6H PRN; Protocol PRN Reason: Anxiety Lorazepam (Ativan) 2 mg IM Q6H PRN; Protocol PRN Reason: Severe Agitation Lorazepam (Ativan) 0.5 mg PO [facility]HS HERIBERTO; Protocol Last Admin: 05/28/18 11:47 Dose: 0.5 mg Magnesium Hydroxide (Milk Of Magnesia) 30 ml PO DAILY PRN PRN Reason: Constipation Risperidone (Risperdal Tab) 1 mg PO AMHS HERIBERTO; Protocol Last Admin: 05/28/18 11:47 Dose: 1 mg Trazodone HCl (Desyrel) 50 mg PO HS PRN PRN Reason: Insomnia Last Admin: 05/27/18 21:43 Dose: 50 mg Ziprasidone (Geodon Cap) 20 mg PO Q6H PRN; Protocol PRN Reason: Agitation Ziprasidone (Geodon Inj) 20 mg IM Q6H PRN; Protocol PRN Reason: Severe Agitation Results - Vital Signs Recent Vital Signs: Last Vital Signs Temp 98.2 F 05/27/18 06:14 Pulse 70 05/27/18 06:14 Resp 16 05/27/18 06:14 BP 133/77 05/27/18 06:14 Pulse Ox 100 05/26/18 17:45 - Labs Result Diagrams: 05/28/18 09:10 05/26/18 02:08 Labs: Laboratory Results - last 24 hr 05/27/18 05/28/18 07:20 09:10 WBC 6.5 D RBC 4.98 Hgb 10.7 L Hct 36.0 MCV 72.3 L MCH 21.5 L MCHC 29.7 L RDW 14.9 H Plt Count 293 MPV 10.0 RPR Nonreactive Attending/Attestation - Attestation I have personally seen and examined this patient.: Yes I have fully participated in the care of the patient.: Yes I have reviewed all pertinent clinical information: Yes Notes (Text): 05/28/18 15:57 27 year old homeless female who presented with complaint of depressed mood, SI, and auditory hallucinations. Medical consultation was requested for medical evaluation for leukocytosis and vaginal discharge. Patient is poor historian and answers minimally to questions. She states had episode of vaginal discharge now resolved. UA is negative. Mild leukocytosis on admission now resolved. Will order for HIV, G/C and BV vaginitis studies. She deferred pelvic examination but agreed for above studies. Can empirically treat for BV with flagyl x1 dose now. We will follow peripherally or please call with above studies. Misbah Gisbon MD Hospitalist.
--- NOTE | 2018-05-29 08:53 | PCM.PYCHPN ---
Psychiatric Progress Note - Psychiatric Progress Note Patient seen today, length of contact: 25 min Problems Identified/Issues Discussed: I reviewed recent notes and met with patient at bedside. She still presents as unkempt, disengaged and vague. Affect is guarded with continued PMR and block ing. Responses are brief but generally relevant to questioning. She tells me that she is feeling a little better and denies any new issues. She is still hallucinating and complains of "seeing things, people, trees in my room". Affect is constricted and a little flat. Patient denies side effects, discomfort or pain at this time. Reports that she slept well. Staff have noted patient's poor personal hygiene including genital odor and lack of motivation in her grooming since arriving on the unit. She has demonstrated bizarre behaviors including odd gesticulations/poses in the tv lounge. There were no major behavioral issues over the weekend and she remains unpredictable. Diagnostic Results: Rule out psychosis Rule out depression Rule out major depressive disorder with psychosis cannabis abuse, rule out substance-induced psychosis Medication Change: Yes (Risperdal increased ) Medical Record Reviewed: Yes Mental Status Examination - Cognitive Function Orientation: Person, Place Attention: Poor Concentration: Poor Association: Loose Fund of Knowledge: Poor - Mood Mood: Depressed - Affect Affect: Flat - Formal Thought Process Formal Thought Process: Hallucinations ("people and trees in my room") - Suicidal Ideation Suicidal Ideation: No - Homicidal Ideation Homicidal Ideation: No Goal/Treatment Plan - Goal/Treatment Plan Progress Toward Problem(s) and Goals/Treatment Plan: * c/w current tx and plan * Appreciate f/u by Dr. Franco/Dr. Gibson on 05/28/18~treating empirically for bacterial vaginosis with one time dose of flagyl. Ordered HIV, gonorrhea, chlamydia, bacterial vaginosis, trichomonas cultures to further evaluate other causes of bacterial discharge * Risperdal increased to 1 mg po AMHS, added ativan 0.5 mg po AMHS to help with fluency and for EPS prophylaxis on 05/28/18. * On 05/29/18, Risperdal was further increased to 2 mg AMHS for bizarre and disorganized behaviors, reported hallucinations as well as negative symptoms * Vitals reviewed and noted below: Selected Entries 05/26/18 05/27/18 05/28/18 17:45 06:14 16:00 Temperature 98.5 F 98.2 F Pulse Rate 90 70 82 Respiratory 18 16 Rate Blood Pressure 126/85 133/77 131/81 * New labs results noted below thus far this weekend Laboratory Results - last 24 hr 05/28/18 09:10 WBC 6.5 D RBC 4.98 Hgb 10.7 L Hct 36.0 MCV 72.3 L MCH 21.5 L MCHC 29.7 L RDW 14.9 H Plt Count 293 MPV 10.0
--- NOTE | 2018-05-30 15:46 | PCM.PYCHPN ---
Psychiatric Progress Note - Psychiatric Progress Note Patient seen today, length of contact: 25 min Patient Chief Complaint: "I feel little better" Problems Identified/Issues Discussed: Suicide/ homicide prevention, past psychiatric h/o, current psychiatric symptoms, medical problems, risk/benefits and alternatives of medications, medications compliance, coping strategies, substance abuse h/o, relapse prevention, importance of follow up with psychiatrist and therapist, discharge plan. Medical Problems: See HPI Diagnostic Results: 05/28/18 09:10 05/26/18 02:08 Lab Results 05/28/18 10:00: HIV 1&2 Antibody Screen Negative 05/28/18 09:10: WBC 6.5 D, RBC 4.98, Hgb 10.7 L, Hct 36.0, MCV 72.3 L, MCH 21.5 L, MCHC 29.7 L, RDW 14.9 H, Plt Count 293, MPV 10.0 05/27/18 07:40: Fasting Glucose 95, Triglycerides 81, Cholesterol 158, LDL Pamela sterol Direct 87, HDL Cholesterol 48 05/27/18 07:20: RPR Nonreactive 05/27/18 07:20: TSH 3rd Generation 0.35 L 05/26/18 02:08: Alcohol, Quantitative < 10 05/26/18 02:08: Salicylates < 1 L, Acetaminophen < 10.0 L 05/26/18 02:08: Sodium 140, Potassium 3.8, Chloride 105, Carbon Dioxide 27, Anion Gap 12, BUN 14, Creatinine 0.8, Est GFR ( Amer) > 60, Est GFR (Non- Af Amer) > 60, Random Glucose 78, Calcium 9.8, Magnesium 2.0, Total Bilirubin 0.3, AST 24, ALT 7, Alkaline Phosphatase 90, Total Protein 8.5 H, Albumin 4.6, Globulin 3.9, Albumin/Globulin Ratio 1.2 05/26/18 02:08: WBC 11.5 H, RBC 5.25, Hgb 11.7 L, Hct 37.5, MCV 71.4 L, MCH 22.3 L, MCHC 31.2, RDW 14.8 H, Plt Count 334, MPV 9.9, Neut % (Auto) 52.6, Lymph % (Auto) 39.8 H, [place] % (Auto) 5.1, Eos % (Auto) 2.1, Baso % (Auto) 0.4, Lymph # (Auto) 4.6 H, [place] # (Auto) 0.6, Eos # (Auto) 0.2, Baso # (Auto) 0.05, Absolute Neuts (auto) 6.04 05/26/18 02:00: Urine Opiates Screen Negative, Urine Methadone Screen Negative, Ur Barbiturates Screen Negative, Ur Phencyclidine Scrn Negative, Ur Amphetamines Screen Negative, U Benzodiazepines Scrn Negative, U Oth Cocaine Metabols Negative, U Cannabinoids Screen Positive H 05/25/18 23:50: Urine Color Yellow, Urine Appearance Clear, Urine pH 6.0, Ur Specific [place] >= 1.030, Urine Protein Negative, Urine Glucose (UA) Negative, Urine Ketones Negative, Urine Blood Trace-intact H, Urine Nitrate Negative, Urine Bilirubin Negative, Urine Urobilinogen 0.2, Ur Leukocyte Esterase Negative, Urine RBC 0 - 2, Urine WBC 1 - 3, Ur Epithelial Cells 4 - 5, Urine Bacteria Small Vital Signs Temp Pulse Resp BP Pulse Ox 05/29/18 16:00 92 H 117/68 05/28/18 16:00 82 131/81 05/27/18 06:14 98.2 F 70 16 133/77 05/26/18 17:45 98.5 F 90 18 126/85 100 05/26/18 15:02 76 18 107/74 100 05/26/18 13:45 72 16 110/72 99 05/26/18 12:30 77 16 122/69 100 05/26/18 10:32 97.9 F 82 16 129/82 99 05/26/18 05:00 77 16 127/71 97 05/26/18 03:00 76 18 124/72 97 05/26/18 00:45 80 18 127/82 98 05/25/18 23:45 98.1 F 89 18 137/84 98 DSM 5 Symptoms Update: shortly pt is 27 yo female with not known previous psych h/o, came to the ED with c/o 1 episode of clear vaginal discharge, abdominatl pain, pt was cleared by medical team, after that in ED pt reported "not feeling safe, hearing voices", PES was called, pt was in catatonic stage, was not able to provide any h/o, [facility] [place] [place] was contacted for involuntary commitment, pt was not accepted by [facility] [place] [place], this wrier evaluated pt in ED, pt presented to be disorganized, poor hygiene, said that she is hearing voices "hang yourself-kill yourself", pt required further evaluation and stabilization, med management, observation. Patient was seen at the treatment team meeting, patient presented to be guarded, paranoid, with psychomotor retardation, with her responses, patient has episodes of confusion, impulses are still unpredictable. For example at the group therapy, with no trigger patient stood up through the piece of paper and left the room, when patient was asked anything happening, patient replied "I just need to go." Patient denied any hallucinations today but per Dr. Gonzales's note patient was hallucinating "seeing things, people, trees in my room". Staff have noted patient's poor personal hygiene including genital odor and lack of motivation in her grooming since arriving on the unit. She has demonstrated bizarre behaviors including odd gesticulations/poses in the tv lounge. There were no major behavioral issues over the weekend and she remains unpredictable. So far patient tolerates medications well, no side effects observed or reported, aims 0, no EPS. DSM-V: Rule out psychosis Rule out depression Rule out major depressive disorder with psychosis cannabis abuse, rule out substance-induced psychosis Medication Change: Yes (Risperdal increased over the weekend. ) Medical Record Reviewed: Yes Consults ordered or reviewed: Medical consult appreciated Mental Status Examination - Cognitive Function Orientation: Person, Place Attention: Poor Concentration: Poor Association: Loose Fund of Knowledge: Poor - Mood Mood: Depressed - Affect Affect: Flat - Formal Thought Process Formal Thought Process: Hallucinations ("people and trees in my room") - Suicidal Ideation Suicidal Ideation: No - Homicidal Ideation Homicidal Ideation: No Goal/Treatment Plan - Goal/Treatment Plan Need for Continued Stay: Remain at risks for inpatient hospitalization, Severe depression anxiety, Discharge may exacerbated symptoms, Severe functional impairment Progress Toward Problem(s) and Goals/Treatment Plan: Milieu/structure/supportive therapy SW consultation for discharge plan and social issues Med management: Risperdal 2 mg twice a day for psychosis As needed medication Medical consult appreciated Family involvement Follow up on labs Will monitor closely Pt was educated about risk/benefits and alternatives of medications, coping strategies (safety plan, suicide prevention), relapse prevention, importance of follow up with psychiatrist and therapist, stay away from drugs/alcohol/smoking Estimated Date of D/C: 06/03/18
[2018-05-31 07:06] VITALS: O2SAT 99
--- NOTE | 2018-05-31 16:18 | PCM.PYCHPN ---
Psychiatric Progress Note - Psychiatric Progress Note Patient seen today, length of contact: 25 min Patient Chief Complaint: "I did not say voices, I said whispers" Problems Identified/Issues Discussed: Suicide/ homicide prevention, past psychiatric h/o, current psychiatric symptoms, medical problems, risk/benefits and alternatives of medications, medications compliance, coping strategies, substance abuse h/o, relapse prevention, importance of follow up with psychiatrist and therapist, discharge plan. Medical Problems: See HPI Diagnostic Results: 05/28/18 09:10 05/26/18 02:08 Lab Results 05/28/18 10:00: HIV 1&2 Antibody Screen Negative 05/28/18 09:10: WBC 6.5 D, RBC 4.98, Hgb 10.7 L, Hct 36.0, MCV 72.3 L, MCH 21.5 L, MCHC 29.7 L, RDW 14.9 H, Plt Count 293, MPV 10.0 05/27/18 07:40: Fasting Glucose 95, Triglycerides 81, Cholesterol 158, LDL Cholesterol Direct 87, HDL Cholesterol 48 05/27/18 07:20: RPR Nonreactive 05/27/18 07:20: TSH 3rd Generation 0.35 L 05/26/18 02:08: Alcohol, Quantitative < 10 05/26/18 02:08: Salicylates < 1 L, Acetaminophen < 10.0 L 05/26/18 02:08: Sodium 140, Potassium 3.8, Chloride 105, Carbon Dioxide 27, Anion Gap 12, BUN 14, Creatinine 0.8, Est GFR ( Amer) > 60, Est GFR (Non- Af Amer) > 60, Random Glucose 78, Calcium 9.8, Magnesium 2.0, Total Bilirubin 0.3, AST 24, ALT 7, Alkaline Phosphatase 90, Total Protein 8.5 H, Albumin 4.6, Globulin 3.9, Albumin/Globulin Ratio 1.2 05/26/18 02:08: WBC 11.5 H, RBC 5.25, Hgb 11.7 L, Hct 37.5, MCV 71.4 L, MCH 22.3 L, MCHC 31.2, RDW 14.8 H, Plt Count 334, MPV 9.9, Neut % (Auto) 52.6, Lymph % (Auto) 39.8 H, [place] % (Auto) 5.1, Eos % (Auto) 2.1, Baso % (Auto) 0.4, Lymph # (Auto) 4.6 H, [place] # (Auto) 0.6, Eos # (Auto) 0.2, Baso # (Auto) 0.05, Absolute Neuts (auto) 6.04 05/26/18 02:00: Urine Opiates Screen Negative, Urine Methadone Screen Negative, Ur Barbiturates Screen Negative, Ur Phencyclidine Scrn Negative, Ur Amphetamines Screen Negative, U Benzodiazepines Scrn Negative, U Oth Cocaine Metabols Negative, U Cannabinoids Screen Positive H 05/25/18 23:50: Urine Color Yellow, Urine Appearance Clear, Urine pH 6.0, Ur Specific [place] >= 1.030, Urine Protein Negative, Urine Glucose (UA) Negative, Urine Ketones Negative, Urine Blood Trace-intact H, Urine Nitrate Negative, Urine Bilirubin Negative, Urine Urobilinogen 0.2, Ur Leukocyte Esterase Negative, Urine RBC 0 - 2, Urine WBC 1 - 3, Ur Epithelial Cells 4 - 5, Urine Bacteria Small Vital Signs Temp Pulse Resp BP Pulse Ox 05/29/18 16:00 92 H 117/68 05/28/18 16:00 82 131/81 05/27/18 06:14 98.2 F 70 16 133/77 05/26/18 17:45 98.5 F 90 18 126/85 100 05/26/18 15:02 76 18 107/74 100 05/26/18 13:45 72 16 110/72 99 05/26/18 12:30 77 16 122/69 100 05/26/18 10:32 97.9 F 82 16 129/82 99 05/26/18 05:00 77 16 127/71 97 05/26/18 03:00 76 18 124/72 97 05/26/18 00:45 80 18 127/82 98 05/25/18 23:45 98.1 F 89 18 137/84 98 DSM 5 Symptoms Update: shortly pt is 27 yo female with not known previous psych h/o, came to the ED with c/o 1 episode of clear vaginal discharge, abdominatl pain, pt was cleared by medical team, after that in ED pt reported "not feeling safe, hearing voices", PES was called, pt was in catatonic stage, was not able to provide any h/o, [facility] [place], pt was not accepted by [facility], this wrier evaluated pt in ED, pt presented to be disorganized, poor hygiene, said that she is hearing voices "hang yourself-kill yourself", pt required further evaluation and stabilization, med management, observation. Patient was seen at the treatment team meeting, patient presented to be guarded, paranoid, with psychomotor retardation, with her responses, patient has episodes of confusion, impulses are still unpredictable. Patient was observed smirking, severe thought blocking. Patient reported that she hears some voices, "whispers", patient denied command-type hallucinations. Patient gave permission to talk to her sister, collateral's were appreciated, as per social work job titles report patient has long history of schizophrenia, chronic noncompliance with her medications and follow-up appointments, patient has multiple hospitalizations in to the psychiatric inpatient unit in the past. DYFIS Involved, but patient did not give permission to talk to them. as per report patient's son still in the hospital, he is 1 month old, waiting for foster care. There were no major behavioral issues over the weekend and she remains unpredictable, patient wants to be discharged, was giving this show card writer attitude. So far patient tolerates medications well, no side effects observed or reported, aims 0, no EPS. DSM-V: Rule out psychosis Rule out depression Rule out major depressive disorder with psychosis cannabis abuse, rule out substance-induced psychosis Medication Change: Yes (Risperdal increased over the weekend. ) Medical Record Reviewed: Yes Mental Status Examination - Cognitive Function Orientation: Person, Place Attention: Poor Concentration: Poor Association: Loose Fund of Knowledge: Poor - Mood Mood: Depressed - Affect Affect: Flat - Formal Thought Process Formal Thought Process: Hallucinations ("people and trees in my room") - Suicidal Ideation Suicidal Ideation: No - Homicidal Ideation Homicidal Ideation: No Goal/Treatment Plan - Goal/Treatment Plan Need for Continued Stay: Remain at risks for inpatient hospitalization, Severe depression anxiety, Discharge may exacerbated symptoms, Severe functional impairment Progress Toward Problem(s) and Goals/Treatment Plan: Milieu/structure/supportive therapy SW consultation for discharge plan and social issues Med management: Risperdal 2 mg 3 times a day for psychosis Trazodone 50 mg for insomnia as well as depression As needed medication Medical consult appreciated Family involvement Follow up on labs Will monitor closely Pt was educated about risk/benefits and alternatives of medications, coping str ategies (safety plan, suicide prevention), relapse prevention, importance of follow up with psychiatrist and therapist, stay away from drugs/alcohol/smoking Estimated Date of D/C: 06/03/18
--- NOTE | 2018-06-01 14:13 | PCM.PYCHPN ---
Psychiatric Progress Note - Psychiatric Progress Note Patient seen today, length of contact: 30min Patient Chief Complaint: "I can manage everything myself...." Problems Identified/Issues Discussed: Suicide/ homicide prevention, past psychiatric h/o, current psychiatric sym ptoms, medical problems, risk/benefits and alternatives of medications, medications compliance, coping strategies, substance abuse h/o, relapse prevention, importance of follow up with psychiatrist and therapist, discharge plan. Medical Problems: See HPI Diagnostic Results: 05/28/18 09:10 05/26/18 02:08 Lab Results 05/28/18 10:00: HIV 1&2 Antibody Screen Negative 05/28/18 09:10: WBC 6.5 D, RBC 4.98, Hgb 10.7 L, Hct 36.0, MCV 72.3 L, MCH 21.5 L, MCHC 29.7 L, RDW 14.9 H, Plt Count 293, MPV 10.0 05/27/18 07:40: Fasting Glucose 95, Triglycerides 81, Cholesterol 158, LDL Cholesterol Direct 87, HDL Cholesterol 48 05/27/18 07:20: RPR Nonreactive 05/27/18 07:20: TSH 3rd Generation 0.35 L 05/26/18 02:08: Alcohol, Quantitative < 10 05/26/18 02:08: Salicylates < 1 L, Acetaminophen < 10.0 L 05/26/18 02:08: Sodium 140, Potassium 3.8, Chloride 105, Carbon Dioxide 27, Anion Gap 12, BUN 14, Creatinine 0.8, Est GFR ( Amer) > 60, Est GFR (Non- Af Amer) > 60, Random Glucose 78, Calcium 9.8, Magnesium 2.0, Total Bilirubin 0.3, AST 24, ALT 7, Alkaline Phosphatase 90, Total Protein 8.5 H, Albumin 4.6, Globulin 3.9, Albumin/Globulin Ratio 1.2 05/26/18 02:08: WBC 11.5 H, RBC 5.25, Hgb 11.7 L, Hct 37.5, MCV 71.4 L, MCH 22.3 L, MCHC 31.2, RDW 14.8 H, Plt Count 334, MPV 9.9, Neut % (Auto) 52.6, Lymph % (Auto) 39.8 H, [place] % (Auto) 5.1, Eos % (Auto) 2.1, Baso % (Auto) 0.4, Lymph # (Auto) 4.6 H, [place] # (Auto) 0.6, Eos # (Auto) 0.2, Baso # (Auto) 0.05, Absolute Neuts (auto) 6.04 05/26/18 02:00: Urine Opiates Screen Negative, Urine Methadone Screen Negative, Ur Barbiturates Screen Negative, Ur Phencyclidine Scrn Negative, Ur Amphetamines Screen Negative, U Benzodiazepines Scrn Negative, U Oth Cocaine Metabols Negative, U Cannabinoids Screen Positive H 05/25/18 23:50: Urine Color Yellow, Urine Appearance Clear, Urine pH 6.0, Ur Specific [place] >= 1.030, Urine Protein Negative, Urine Glucose (UA) Negative, Urine Ketones Negative, Urine Blood Trace-intact H, Urine Nitrate Negative, Urine Bilirubin Negative, Urine Urobilinogen 0.2, Ur Leukocyte Esterase Negative, Urine RBC 0 - 2, Urine WBC 1 - 3, Ur Epithelial Cells 4 - 5, Urine Bacteria Small Vital Signs Temp Pulse Resp BP Pulse Ox 05/29/18 16:00 92 H 117/68 05/28/18 16:00 82 131/81 05/27/18 06:14 98.2 F 70 16 133/77 05/26/18 17:45 98.5 F 90 18 126/85 100 05/26/18 15:02 76 18 107/74 100 05/26/18 13:45 72 16 110/72 99 05/26/18 12:30 77 16 122/69 100 05/26/18 10:32 97.9 F 82 16 129/82 99 05/26/18 05:00 77 16 127/71 97 05/26/18 03:00 76 18 124/72 97 05/26/18 00:45 80 18 127/82 98 05/25/18 23:45 98.1 F 89 18 137/84 98 DSM 5 Symptoms Update: shortly pt is 27 yo female with not known previous psych h/o, came to the ED with c/o 1 episode of clear vaginal discharge, abdominatl pain, pt was cleared by medical team, after that in ED pt reported "not feeling safe, hearing voices", PES was called, pt was in catatonic stage, was not able to provide any h/o, [facility] [place], pt was not accepted by [facility], this wrier evaluated pt in ED, pt presented to be disorganized, poor hygiene, said that she is hearing voices "hang yourself-kill yourself", pt required further evaluation and stabilization, med management, observation. Patient was seen at the treatment team meeting, patient presented to be guarded, paranoid, with psychomotor retardation, slow with her responses, patient has episodes of confusion, impulses are still unpredictable. DYFS and ICMS contact, said "I can manage everything myself...", Which is very doubtful, patient was wandering the streets, was noncompliant with her medications, was not compliant with the follow-up appointments, patient does not have medicated because of mistake with her date, patient also has her 1 month old son in the hospital waiting for foster care. as per report pt does not have medicaid and she needs to go to the medicaid office and reapply, for what pt might need assistance, pt was seen again with full explanation, pt agreed for ICMS referral. on top of that pt was opened to the option to have injectable form of invega. There were no major behavioral issues over the weekend and she remains unpredictable, patient wants to be discharged, was giving this check writer attitude. So far patient tolerates medications well, no side effects observed or reported, aims 0, no EPS. DSM-V: Rule out psychosis Rule out depression Rule out major depressive disorder with psychosis cannabis abuse, rule out substance-induced psychosis Medication Change: Yes (Risperdal increased over the weekend. ) Medical Record Reviewed: Yes Consults ordered or reviewed: Medical consult appreciated Mental Status Examination - Cognitive Function Orientation: Person, Place Attention: Poor Concentration: Poor Association: Loose Fund of Knowledge: Poor - Mood Mood: Depressed - Affect Affect: Flat - Formal Thought Process Formal Thought Process: Hallucinations ("I was hearing some wispers") - Suicidal Ideation Suicidal Ideation: No - Homicidal Ideation Homicidal Ideation: No Goal/Treatment Plan - Goal/Treatment Plan Need for Continued Stay: Remain at risks for inpatient hospitalization, Severe depression anxiety, Discharge may exacerbated symptoms, Severe functional impairment Progress Toward Problem(s) and Goals/Treatment Plan: Milieu/structure/supportive therapy consultation for discharge plan and social issues Med management: Risperdal 2 mg 3 times a day for psychosis, possible injectable form of meds ICMS referral Trazodone 50 mg for insomnia as well as depression As needed medication Medical consult appreciated Family involvement Follow up on labs Will monitor closely Pt was educated about risk/benefits and alternatives of medications, coping strategies (safety plan, suicide prevention), relapse prevention, importance of follow up with psychiatrist and therapist, stay away from drugs/alcohol/smoking Estimated Date of D/C: 06/03/18
--- NOTE | 2018-06-02 15:09 | PCM.PYCHPN ---
Psychiatric Progress Note - Psychiatric Progress Note Patient seen today, length of contact: 30min Patient Chief Complaint: "Do you know when I will be discharged Problems Identified/Issues Discussed: Suicide/ homicide prevention, past psychiatric h/o, current psychiatric s ymptoms, medical problems, risk/benefits and alternatives of medications, medications compliance, coping strategies, substance abuse h/o, relapse prevention, importance of follow up with psychiatrist and therapist, discharge plan. Medical Problems: See HPI Diagnostic Results: 05/28/18 09:10 05/26/18 02:08 Lab Results 05/28/18 10:00: HIV 1&2 Antibody Screen Negative 05/28/18 09:10: WBC 6.5 D, RBC 4.98, Hgb 10.7 L, Hct 36.0, MCV 72.3 L, MCH 21.5 L, MCHC 29.7 L, RDW 14.9 H, Plt Count 293, MPV 10.0 05/27/18 07:40: Fasting Glucose 95, Triglycerides 81, Cholesterol 158, LDL Cholesterol Direct 87, HDL Cholesterol 48 05/27/18 07:20: RPR Nonreactive 05/27/18 07:20: TSH 3rd Generation 0.35 L 05/26/18 02:08: Alcohol, Quantitative < 10 05/26/18 02:08: Salicylates < 1 L, Acetaminophen < 10.0 L 05/26/18 02:08: Sodium 140, Potassium 3.8, Chloride 105, Carbon Dioxide 27, Anion Gap 12, BUN 14, Creatinine 0.8, Est GFR ( Amer) > 60, Est GFR (Non- Af Amer) > 60, Random Glucose 78, Calcium 9.8, Magnesium 2.0, Total Bilirubin 0.3, AST 24, ALT 7, Alkaline Phosphatase 90, Total Protein 8.5 H, Albumin 4.6, Globulin 3.9, Albumin/Globulin Ratio 1.2 05/26/18 02:08: WBC 11.5 H, RBC 5.25, Hgb 11.7 L, Hct 37.5, MCV 71.4 L, MCH 22.3 L, MCHC 31.2, RDW 14.8 H, Plt Count 334, MPV 9.9, Neut % (Auto) 52.6, Lymph % (Auto) 39.8 H, [place] % (Auto) 5.1, Eos % (Auto) 2.1, Baso % (Auto) 0.4, Lymph # (Auto) 4.6 H, [place] # (Auto) 0.6, Eos # (Auto) 0.2, Baso # (Auto) 0.05, Absolute Neuts (auto) 6.04 05/26/18 02:00: Urine Opiates Screen Negative, Urine Methadone Screen Negative, Ur Barbiturates Screen Negative, Ur Phencyclidine Scrn Negative, Ur Amphetamines Screen Negative, U Benzodiazepines Scrn Negative, U Oth Cocaine Metabols Negative, U Cannabinoids Screen Positive H 05/25/18 23:50: Urine Color Yellow, Urine Appearance Clear, Urine pH 6.0, Ur Specific [place] >= 1.030, Urine Protein Negative, Urine Glucose (UA) Negative, Urine Ketones Negative, Urine Blood Trace-intact H, Urine Nitrate Negative, Urine Bilirubin Negative, Urine Urobilinogen 0.2, Ur Leukocyte Esterase Negative, Urine RBC 0 - 2, Urine WBC 1 - 3, Ur Epithelial Cells 4 - 5, Urine Bacteria Small Vital Signs Temp Pulse Resp BP Pulse Ox 05/29/18 16:00 92 H 117/68 05/28/18 16:00 82 131/81 05/27/18 06:14 98.2 F 70 16 133/77 05/26/18 17:45 98.5 F 90 18 126/85 100 05/26/18 15:02 76 18 107/74 100 05/26/18 13:45 72 16 110/72 99 05/26/18 12:30 77 16 122/69 100 05/26/18 10:32 97.9 F 82 16 129/82 99 05/26/18 05:00 77 16 127/71 97 05/26/18 03:00 76 18 124/72 97 05/26/18 00:45 80 18 127/82 98 05/25/18 23:45 98.1 F 89 18 137/84 98 DSM 5 Symptoms Update: shortly pt is 27 yo female with not known previous psych h/o, came to the ED with c/o 1 episode of clear vaginal discharge, abdominatl pain, pt was cleared by medical team, after that in ED pt reported "not feeling safe, hearing voices", PES was called, pt was in catatonic stage, was not able to provide any h/o, [facility] [place], pt was not [place] by [facility], this wrier evaluated pt in ED, pt presented to be disorganized, poor hygiene, said that she is hearing voices "hang yourself-kill yourself", pt required further evaluation and stabilization, med management, observation. Patient was seen in her room, patient finally agreed for ICMS referral, more over pt was opened to the option to have injectable form of invega. Present moment patient has no insurance, H patient will have ICMS worker it would be easier to give injectable form of medication now with a plan to obtain Medicaid after discharge from the hospital. Patient is guarded but not paranoid, with psychomotor retardation, slow with her responses, but with some improvement. There are no behavioral issues besides patient is flirting with another male patient in the unit, staff was advised to monitor patients closely. So far patient tolerates medications well, no side effects observed or reported, aims 0, no EPS. DSM-V: Rule out psychosis Rule out depression Rule out major depressive disorder with psychosis cannabis abuse, rule out substance-induced psychosis Medication Change: No ( ) Medical Record Reviewed: Yes Consults ordered or reviewed: Medical consult appreciated Mental Status Examination - Cognitive Function Orientation: Person, Place Attention: Poor Concentration: Poor Association: Loose Fund of Knowledge: Poor - Mood Mood: Depressed - Affect Affect: Flat - Formal Thought Process Formal Thought Process: Hallucinations ("I was hearing some wispers") - Suicidal Ideation Suicidal Ideation: No - Homicidal Ideation Homicidal Ideation: No Goal/Treatment Plan - Goal/Treatment Plan Need for Continued Stay: Remain at risks for inpatient hospitalization, Severe depression anxiety, Discharge may exacerbated symptoms, Severe functional impairment Progress Toward Problem(s) and Goals/Treatment Plan: Milieu/structure/supportive therapy consultation for discharge plan and social issues Med management: Risperdal 2 mg 3 times a day for psychosis, possible injectable form of meds ICMS referral Trazodone 50 mg for insomnia as well as depression As needed medication Medical consult appreciated Family involvement Follow up on labs Will monitor closely Pt was educated about risk/benefits and alternatives of medications, coping strategies (safety plan, suicide prevention), relapse prevention, importance of follow up with psychiatrist and therapist, stay away from drugs/alcohol/smoking Estimated Date of D/C: 06/06/18
--- NOTE | 2018-06-03 09:46 | PCM.PYCHPN ---
Psychiatric Progress Note - Psychiatric Progress Note Patient seen today, length of contact: 30min Problems Identified/Issues Discussed: I reviewed recent notes and met with patient at bedside. She is presenting better than last weekend. She remembers me from our prior visits and reports that she is feeling better. She is paying more attention to her appearance and grooming. Paranoia is better and hallucinations have remitted. Affect remains disengaged, guarded and constricted with some continued PMR. Responses are brief and generally relevant to questioning though still vague. Patient denies side effects, discomfort or pain at this time. Reports that she slept well. There were no behavioral issues overnight. Diagnostic Results: Rule out psychosis Rule out depression Rule out major depressive disorder with psychosis cannabis abuse, rule out substance-induced psychosis Medication Change: No ( ) Medical Record Reviewed: Yes Mental Status Examination - Cognitive Function Orientation: Person, Place Attention: Poor Concentration: Poor Association: Loose Fund of Knowledge: Poor - Mood Mood: Depressed - Affect Affect: Flat - Speech Speech: Appropriate - Formal Thought Process Formal Thought Process: Hallucinations (better) - Suicidal Ideation Suicidal Ideation: No - Homicidal Ideation Homicidal Ideation: No Goal/Treatment Plan - Goal/Treatment Plan Need for Continued Stay: Remain at risks for inpatient hospitalization, Severe depression anxiety, Discharge may exacerbated symptoms, Severe functional impairment Progress Toward Problem(s) and Goals/Treatment Plan: * c/w current tx and plan * Vitals reviewed and noted below: Selected Entries 06/02/18 06/02/18 06:53 16:00 Temperature 97.4 F L Pulse Rate 77 97 H Respiratory 20 Rate Blood Pressure 114/76 123/80 * No new lab results noted thus far today. * Prior weekend labs results noted below: Laboratory Results - last 24 hr 05/28/18 09:10 WBC 6.5 D RBC 4.98 Hgb 10.7 L Hct 36.0 MCV 72.3 L MCH 21.5 L MCHC 29.7 L RDW 14.9 H Plt Count 293 MPV 10.0 Estimated Date of D/C: 06/06/18
--- NOTE | 2018-06-04 09:59 | PCM.PYCHPN ---
Psychiatric Progress Note - Psychiatric Progress Note Patient seen today, length of contact: 30min Problems Identified/Issues Discussed: I reviewed recent notes and met with patient at bedside. She is presenting better than last weekend. She remembers me from our prior visits and reports that she is feeling better. She is paying more attention to her appearance and grooming. Paranoia is better and hallucinations have reportedly remitted. Nonetheless patient's remains disengaged, guarded and constricted with some continued PMR during our encounters as this has also been noted in staff reports. Her responses are brief and generally relevant to questioning though still vague and disengaged. I agree with staff that patient may be minimizing her symptoms. Patient denies side effects, discomfort or pain at this time. Reports that she is still sleeping well. There were no behavioral issues overnight. Diagnostic Results: Rule out psychosis Rule out depression Rule out major depressive disorder with psychosis cannabis abuse, rule out substance-induced psychosis Medication Change: No ( ) Medical Record Reviewed: Yes Mental Status Examination - Cognitive Function Orientation: Person, Place Attention: Poor Concentration: Poor Association: Loose Fund of Knowledge: Poor - Mood Mood: Depressed ("better") - Affect Affect: Flat - Speech Speech: Appropriate - Formal Thought Process Formal Thought Process: Hallucinations (better), Paranoia (denies) - Suicidal Ideation Suicidal Ideation: No - Homicidal Ideation Homicidal Ideation: No Goal/Treatment Plan - Goal/Treatment Plan Need for Continued Stay: Remain at risks for inpatient hospitalization, Severe depression anxiety, Discharge may exacerbated symptoms, Severe functional impairment Progress Toward Problem(s) and Goals/Treatment Plan: * c/w current tx and plan * Vitals reviewed and noted below: 06/04/18 07:00 Temperature 97.8 F Pulse Rate 73 Respiratory 20 Rate Blood Pressure 120/76 * No new lab results noted thus far this weekend. * Prior weekend labs results noted below: Laboratory Results - last 24 hr 05/28/18 09:10 WBC 6.5 D RBC 4.98 Hgb 10.7 L Hct 36.0 MCV 72.3 L MCH 21.5 L MCHC 29.7 L RDW 14.9 H Plt Count 293 MPV 10.0 Estimated Date of D/C: 06/06/18
--- NOTE | 2018-06-05 10:28 | PCM.PYCHPN ---
Psychiatric Progress Note - Psychiatric Progress Note Patient seen today, length of contact: 30min Problems Identified/Issues Discussed: I reviewed recent notes and met with patient at bedside. She is presenting better than last weekend. She remembers me from our prior visits and reports (flatly) that she is feeling better. She is paying more attention to her appearance and grooming. Paranoia is better and hallucinations have reportedly remitted. Patient denies side effects, discomfort or pain at this time. Reports that she is still sleeping well. Overall however, patient remains disengaged, guarded and constricted with some continued PMR during our encounters. Her flatness and internal preoccupation has also been noted in staff reports. I agree with staff that patient may be minimizing her symptoms. There were no behavioral issues over the weekend. Diagnostic Results: Rule out psychosis Rule out depression Rule out major depressive disorder with psychosis cannabis abuse, rule out substance-induced psychosis Medication Change: No ( ) Medical Record Reviewed: Yes Mental Status Examination - Cognitive Function Orientation: Person, Place Attention: Poor Concentration: Poor Association: Loose Fund of Knowledge: Poor - Mood Mood: Depressed ("better") - Affect Affect: Flat - Speech Speech: Appropriate - Formal Thought Process Formal Thought Process: Hallucinations (better, denied all weekend), Paranoia (denies) - Suicidal Ideation Suicidal Ideation: No - Homicidal Ideation Homicidal Ideation: No Goal/Treatment Plan - Goal/Treatment Plan Need for Continued Stay: Remain at risks for inpatient hospitalization, Severe depression anxiety, Discharge may exacerbated symptoms, Severe functional impai rment Progress Toward Problem(s) and Goals/Treatment Plan: * c/w current tx and plan * Vitals reviewed and noted below: 06/05/18 08:07 Temperature 98.3 F Pulse Rate 87 Respiratory 20 Rate Blood Pressure 104/65 * No new lab results noted thus far this weekend. * Prior weekend labs results noted below: Laboratory Results - last 24 hr 05/28/18 09:10 WBC 6.5 D RBC 4.98 Hgb 10.7 L Hct 36.0 MCV 72.3 L MCH 21.5 L MCHC 29.7 L RDW 14.9 H Plt Count 293 MPV 10.0 Estimated Date of D/C: 06/06/18
[2018-06-06 06:41] VITALS: RESP 18
--- NOTE | 2018-06-06 15:34 | PCM.PYCHPN ---
Psychiatric Progress Note - Psychiatric Progress Note Patient seen today, length of contact: 30min Patient Chief Complaint: "I feel better, I feel more safe now" Problems Identified/Issues Discussed: Suicide/ homicide prevention, past psychiatric h/o, current psychiatric sy mptoms, medical problems, risk/benefits and alternatives of medications, medications compliance, coping strategies, substance abuse h/o, relapse prevention, importance of follow up with psychiatrist and therapist, discharge plan. Medical Problems: See HPI Diagnostic Results: 05/28/18 09:10 05/26/18 02:08 Lab Results 05/28/18 10:00: HIV 1&2 Antibody Screen Negative 05/28/18 09:10: WBC 6.5 D, RBC 4.98, Hgb 10.7 L, Hct 36.0, MCV 72.3 L, MCH 21.5 L, MCHC 29.7 L, RDW 14.9 H, Plt Count 293, MPV 10.0 05/27/18 07:40: Fasting Glucose 95, Triglycerides 81, Cholesterol 158, LDL Cholesterol Direct 87, HDL Cholesterol 48 05/27/18 07:20: RPR Nonreactive 05/27/18 07:20: TSH 3rd Generation 0.35 L 05/26/18 02:08: Alcohol, Quantitative < 10 05/26/18 02:08: Salicylates < 1 L, Acetaminophen < 10.0 L 05/26/18 02:08: Sodium 140, Potassium 3.8, Chloride 105, Carbon Dioxide 27, Anion Gap 12, BUN 14, Creatinine 0.8, Est GFR ( Amer) > 60, Est GFR (Non- Af Amer) > 60, Random Glucose 78, Calcium 9.8, Magnesium 2.0, Total Bilirubin 0.3, AST 24, ALT 7, Alkaline Phosphatase 90, Total Protein 8.5 H, Albumin 4.6, Globulin 3.9, Albumin/Globulin Ratio 1.2 05/26/18 02:08: WBC 11.5 H, RBC 5.25, Hgb 11.7 L, Hct 37.5, MCV 71.4 L, MCH 22.3 L, MCHC 31.2, RDW 14.8 H, Plt Count 334, MPV 9.9, Neut % (Auto) 52.6, Lymph % (Auto) 39.8 H, [place] % (Auto) 5.1, Eos % (Auto) 2.1, Baso % (Auto) 0.4, Lymph # (Auto) 4.6 H, [place] # (Auto) 0.6, Eos # (Auto) 0.2, Baso # (Auto) 0.05, Absolute Neuts (auto) 6.04 05/26/18 02:00: Urine Opiates Screen Negative, Urine Methadone Screen Negative, Ur Barbiturates Screen Negative, Ur Phencyclidine Scrn Negative, Ur Amphetamines Screen Negative, U Benzodiazepines Scrn Negative, U Oth Cocaine Metabols Negative, U Cannabinoids Screen Positive H 05/25/18 23:50: Urine Color Yellow, Urine Appearance Clear, Urine pH 6.0, Ur Specific [place] >= 1.030, Urine Protein Negative, Urine Glucose (UA) Negative, Urine Ketones Negative, Urine Blood Trace-intact H, Urine Nitrate Negative, Urine Bilirubin Negative, Urine Urobilinogen 0.2, Ur Leukocyte Esterase Negative, Urine RBC 0 - 2, Urine WBC 1 - 3, Ur Epithelial Cells 4 - 5, Urine Bacteria Small Vital Signs Temp Pulse Resp BP Pulse Ox 05/29/18 16:00 92 H 117/68 05/28/18 16:00 82 131/81 05/27/18 06:14 98.2 F 70 16 133/77 05/26/18 17:45 98.5 F 90 18 126/85 100 05/26/18 15:02 76 18 107/74 100 05/26/18 13:45 72 16 110/72 99 05/26/18 12:30 77 16 122/69 100 05/26/18 10:32 97.9 F 82 16 129/82 99 05/26/18 05:00 77 16 127/71 97 05/26/18 03:00 76 18 124/72 97 05/26/18 00:45 80 18 127/82 98 05/25/18 23:45 98.1 F 89 18 137/84 98 DSM 5 Symptoms Update: shortly pt is 27 yo female with not known previous psych h/o, came to the ED with c/o 1 episode of clear vaginal discharge, abdominatl pain, pt was cleared by medical team, after that in ED pt reported "not feeling safe, hearing voices", PES was called, pt was in catatonic stage, was not able to provide any h/o, [facility] was contacted for involuntary commitment, pt was not accepted by [facility], this wrier evaluated pt in ED, pt presented to be disorganized, poor hygiene, said that she is hearing voices "hang yourself-kill yourself", pt required further evaluation and stabilization, med management, observation. Patient was seen at the treatment team meeting, patient presented with improved personal hygiene, overall patient improved in regards of mood, psychosis, overall presentation. Patient reported that she still hears some whispers, denied command-type hallucinations. 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 Patient still has no ICMS worker. Patient is guarded but not paranoid, with psychomotor retardation, slow with her responses, but with some improvement. There are no behavioral issues. So far patient tolerates medications well, no side effects observed or reported, aims 0, no EPS. DSM-V: Rule out psychosis Rule out depression Rule out major depressive disorder with psychosis cannabis abuse, rule out substance-induced psychosis Medication Change: No ( ) Medical Record Reviewed: Yes Consults ordered or reviewed: Medical consult appreciated Mental Status Examination - Cognitive Function Orientation: Person, Place Attention: Poor (Some improvements) Concentration: Poor (Some improvement) Association: Loose (Baseline) Fund of Knowledge: Poor (Baseline) - Mood Mood: Depressed ("better") - Affect Affect: Flat - Speech Speech: Appropriate - Formal Thought Process Formal Thought Process: Hallucinations (better, denied all weekend), Paranoia (denies) - Suicidal Ideation Suicidal Ideation: No - Homicidal Ideation Homicidal Ideation: No Goal/Treatment Plan - Goal/Treatment Plan Need for Continued Stay: Remain at risks for inpatient hospitalization, Severe depression anxiety, Discharge may exacerbated symptoms, Severe functional impairment Progress Toward Problem(s) and Goals/Treatment Plan: Milieu/structure/supportive therapy SW consultation for discharge plan and social issues Med management: Risperdal 2 mg 3 times a day for psychosis, possible injectable form of meds To 1.5 mg at the nighttime ICMS referral Trazodone 50 mg for insomnia as well as depression As needed medication Medical consult appreciated Family involvement Follow up on labs Will monitor closely Pt was educated about risk/benefits and alternatives of medications, coping strategies (safety plan, suicide prevention), relapse prevention, importance of follow up with psychiatrist and therapist, stay away from drugs/alcohol/smoking Estimated Date of D/C: 06/07/18
--- NOTE | 2018-06-06 17:01 | PCM.BM ---
<Evon Leach - Last Filed: 06/06/18 16:58> Treatment Plan Problems - Problems identified on initial assessmt Auditory Hallucinations Date Initiated: 05/26/18 (06/06 ADMITS TO LESSER HALLUCINATION .) Time Initiated: 19:00 Assessment reference: NA Status: Active Priority: 1 Altered Thought Process Date Initiated: 05/26/18 Time Initiated: 19:00 Date resolved: 06/06/18 Assessment reference: NA Status: Active Priority: 2 Impaired Communication Date Initiated: 05/26/18 Time Initiated: 19:00 Date resolved: 06/06/18 Assessment reference: NA Status: Active Priority: 3 Self Care Deficit Date Initiated: 05/26/18 Time Initiated: 19:00 Date resolved: 06/06/18 Assessment reference: NA Status: Active Priority: 4 Ineffective Coping Date Initiated: 05/26/18 (06/06 NEEDS MORE REINFORCEMENT WITH POSITIVE COPING SKILLS) Time Initiated: 19:00 Assessment reference: NA Status: Active Priority: 5 Treatment assets and liabiliti Patient Assests: ADL independent, negotiates basic needs, good interpersonal skills Patient Liabilities: live alone, financial problems, poor support system - Milieu Protocol Maintain good personal hygiene: daily Encourage regular showers, every shift Remind patient to perform daily oral care, every shift Assist patient to perform ADL's Maintain personal safety: every shift Educate patient to report safety concerns to staff, every shift Monitor environment for contraband/sharps Medication safety: Monitor for expected outcome, potential side effects: every shift, Assess barriers to learning: every shift, Assess readiness for medication education: every shift Milieu Narrative: Milieu/structure/supportive therapy SW consultation for discharge plan and social issues Med management: Risperdal 2 mg 3 times a day for psychosis, possible injectable form of meds To 1.5 mg at the nighttime ICMS referral Trazodone 50 mg for insomnia as well as depression As needed medication Medical consult appreciated Family involvement Follow up on labs Will monitor closely Pt was educated about risk/benefits and alternatives of medications, coping strategies (safety plan, suicide prevention), relapse prevention, importance of follow up with psychiatrist and therapist, stay away from drugs/alcohol/smoking Family Contact Family contact: Patient declines to allow family contact at present - Goals for Treatment Patient goals for treatment: "I want to get rid of these voices." Discharge/Continuing Care - Education Needs Education Needs: Patient Medication, Patient Diagnosis/Disease Process, Patient Coping Skills, Patient Anger Management skills, Patient Placement options, Patient Community resources, Patient Activities of Daily Living, Patient Pain, Patient Nutrition, Patient Uses of Medical Equipment, Patient Health Practices/Safety, Patient Personal Hygiene/Grooming, Patient Aftercare Safety Plan - Discharge Discharge Criteria: Tolerates medication w/o severe side effects - Treatment Team Participation Patient/Family/SO Statement: Milieu/structure/supportive therapy SW consultation for discharge plan and social issues Med management: Risperdal 2 mg 3 times a day for psychosis, possible injectable form of meds To 1.5 mg at the nighttime ICMS referral Trazodone 50 mg for insomnia as well as depression As needed medication Medical consult appreciated Family involvement Follow up on labs Will monitor closely Pt was educated about risk/benefits and alternatives of medications, coping strategies (safety plan, suicide prevention), relapse prevention, importance of follow up with psychiatrist and therapist, stay away from drugs/alcohol/smoking Treatment Plan Review - Problem Auditory Hallucinations Time Initiated: 19:00 Altered Thought Process Time Initiated: 19:00 Impaired Communication Time Initiated: 19:00 Self Care Deficit Time Initiated: 19:00 Ineffective Coping Time Initiated: 19:00 <Sara Cortez - Last Filed: 06/07/18 12:00> Family Contact Family involvement: Family/SO is involved Family contact: Patient agrees to contact <Barby Roper - Last Filed: 06/08/18 08:57> - Diagnosis (1) Schizophrenia Status: Acute Interventions: 06/08/18 08:56 As per report and information from family patient has a history of schizophrenia patient was stabilized with Risperdal Patient is less psychotic, more organized, compliant with her medications denied suicidal or homicidal ideation, seems to be improving
[2018-06-07 07:44] VITALS: BP 110/76; PULSE 76; TEMP 98.1
--- NOTE | 2018-06-08 09:07 | PCM.PYCHDC ---
Mental Status Examination - Mental Status Examination Orientation: Person, Place, Situation, Time Memory: Intact Mood: Neutral Affect: Constricted (But more reactive and mood congruent) Attention: Poor (But with much improvement) Concentration: Poor (But with much improvement) Association: Loose (Baseline) Fund of Knowledge: Poor (Baseline) Formal Thought Process: Other ( thought process is concrete, but more organized) Description of patient's judgement and insight: Pt has improved insight into mental and medical illness, pt was compliant with medications and unit rules and regulations, pt was attending therapy groups, was calm, cooperative, socially appropriate, no behavioral incidents, no agitation, no aggression. Psychotic Thoughts and Behaviors: Pt denied v/a/t hallucinations, denied paranoid ideations, pt does not appear to be psychotic, and thought process is goal directed. Suicidal Ideation: No Current Homicidal Ideation?: No Plan: pt adamantly denied thoughts of harming self or others denied intent or plan. Discharge Summary - Discharge Note Reason for Hospitalization: 05/26/18 02:08 05/26/18 02:08 Lab Results 05/27/18 07:40: Fasting Glucose 95, Triglycerides 81, Cholesterol 158, LDL Cholesterol Direct 87, HDL Cholesterol 48 05/27/18 07:20: TSH 3rd Generation 0.35 L 05/26/18 02:08: Alcohol, Quantitative < 10 05/26/18 02:08: Salicylates < 1 L, Acetaminophen < 10.0 L 05/26/18 02:08: Sodium 140, Potassium 3.8, Chloride 105, Carbon Dioxide 27, Anion Gap 12, BUN 14, Creatinine 0.8, Est GFR ( Amer) > 60, Est GFR (Non- Af Amer) > 60, Random Glucose 78, Calcium 9.8, Magnesium 2.0, Total Bilirubin 0.3, AST 24, ALT 7, Alkaline Phosphatase 90, Total Protein 8.5 H, Albumin 4.6, Globulin 3.9, Albumin/Globulin Ratio 1.2 05/26/18 02:08: WBC 11.5 H, RBC 5.25, Hgb 11.7 L, Hct 37.5, MCV 71.4 L, MCH 22.3 L, MCHC 31.2, RDW 14.8 H, Plt Count 334, MPV 9.9, Neut % (Auto) 52.6, Lymph % (Auto) 39.8 H, [place] % (Auto) 5.1, Eos % (Auto) 2.1, Baso % (Auto) 0.4, Lymph # (Auto) 4.6 H, [place] # (Auto) 0.6, Eos # (Auto) 0.2, Baso # (Auto) 0.05, Absolute Neuts (auto) 6.04 05/26/18 02:00: Urine Opiates Screen Negative, Urine Methadone Screen Negative, Ur Barbiturates Screen Negative, Ur Phencyclidine Scrn Negative, Ur Amphetamines Screen Negative, U Benzodiazepines Scrn Negative, U Oth Cocaine Metabols Negative, U Cannabinoids Screen Positive H 05/25/18 23:50: Urine Color Yellow, Urine Appearance Clear, Urine pH 6.0, Ur Specific [place] >= 1.030, Urine Protein Negative, Urine Glucose (UA) Negative, Urine Ketones Negative, Urine Blood Trace-intact H, Urine Nitrate Negative, Urine Bilirubin Negative, Urine Urobilinogen 0.2, Ur Leukocyte Esterase Negative, Urine RBC 0 - 2, Urine WBC 1 - 3, Ur Epithelial Cells 4 - 5, Urine Bacteria Small Vital Signs Temp Pulse Resp BP Pulse Ox 05/27/18 06:14 98.2 F 70 16 133/77 05/26/18 17:45 98.5 F 90 18 126/85 100 05/26/18 15:02 76 18 107/74 100 05/26/18 13:45 72 16 110/72 99 05/26/18 12:30 77 16 122/69 100 05/26/18 10:32 97.9 F 82 16 129/82 99 05/26/18 05:00 77 16 127/71 97 05/26/18 03:00 76 18 124/72 97 05/26/18 00:45 80 18 127/82 98 05/25/18 23:45 98.1 F 89 18 137/84 98 Psychiatric History (includes Medical, Family, Personal Hx): See HPI Laboratory Data: 05/28/18 09:10 05/26/18 02:08 Lab Results 05/29/18 07:53: N.gonorrhoea Ab Cmp Fix <1:8 05/28/18 16:00: C.trachomatis RNA (TMA) Not detected, N.gonorrhoeae RNA (TMA) Not detected 05/28/18 10:00: HIV 1&2 Antibody Screen Negative 05/28/18 09:10: WBC 6.5 D, RBC 4.98, Hgb 10.7 L, Hct 36.0, MCV 72.3 L, MCH 21.5 L, MCHC 29.7 L, RDW 14.9 H, Plt Count 293, MPV 10.0 05/27/18 07:40: Fasting Glucose 95, Triglycerides 81, Cholesterol 158, LDL Cholesterol Direct 87, HDL Cholesterol 48 05/27/18 07:20: RPR Nonreactive 05/27/18 07:20: TSH 3rd Generation 0.35 L 05/26/18 02:08: Alcohol, Quantitative < 10 05/26/18 02:08: Salicylates < 1 L, Acetaminophen < 10.0 L 05/26/18 02:08: Sodium 140, Potassium 3.8, Chloride 105, Carbon Dioxide 27, Anion Gap 12, BUN 14, Creatinine 0.8, Est GFR ( Amer) > 60, Est GFR (Non- Af Amer) > 60, Random Glucose 78, Calcium 9.8, Magnesium 2.0, Total Bilirubin 0.3, AST 24, ALT 7, Alkaline Phosphatase 90, Total Protein 8.5 H, Albumin 4.6, Globulin 3.9, Albumin/Globulin Ratio 1.2 05/26/18 02:08: WBC 11.5 H, RBC 5.25, Hgb 11.7 L, Hct 37.5, MCV 71.4 L, MCH 22.3 L, MCHC 31.2, RDW 14.8 H, Plt Count 334, MPV 9.9, Neut % (Auto) 52.6, Lymph % (Auto) 39.8 H, [place] % (Auto) 5.1, Eos % (Auto) 2.1, Baso % (Auto) 0.4, Lymph # (Auto) 4.6 H, [place] # (Auto) 0.6, Eos # (Auto) 0.2, Baso # (Auto) 0.05, Absolute Neuts (auto) 6.04 05/26/18 02:00: Urine Opiates Screen Negative, Urine Methadone Screen Negative, Ur Barbiturates Screen Negative, Ur Phencyclidine Scrn Negative, Ur Amphetamines Screen Negative, U Benzodiazepines Scrn Negative, U Oth Cocaine Metabols Negative, U Cannabinoids Screen Positive H 05/25/18 23:50: Urine Color Yellow, Urine Appearance Clear, Urine pH 6.0, Ur Specific [place] >= 1.030, Urine Protein Negative, Urine Glucose (UA) Negative, Urine Ketones Negative, Urine Blood Trace-intact H, Urine Nitrate Negative, Urine Bilirubin Negative, Urine Urobilinogen 0.2, Ur Leukocyte Esterase Negative, Urine RBC 0 - 2, Urine WBC 1 - 3, Ur Epithelial Cells 4 - 5, Urine Bacteria Small Vital Signs Temp Pulse Resp BP Pulse Ox 06/07/18 07:00 98.1 F 76 18 110/76 06/06/18 16:00 93 H 129/83 06/06/18 06:40 98.3 F 77 18 139/89 06/05/18 16:55 90 128/86 06/05/18 16:54 90 06/05/18 08:07 98.3 F 87 20 104/65 06/04/18 16:52 94 H 114/64 06/04/18 07:00 97.8 F 73 20 120/76 06/03/18 16:00 100 H 122/78 06/02/18 16:00 97 H 123/80 06/02/18 06:53 97.4 F L 77 20 114/76 06/01/18 16:00 108 H 122/77 05/31/18 17:00 91 H 115/69 05/31/18 07:00 98.1 F 79 19 119/74 99 05/30/18 16:17 98.0 F 96 H 15 153/88 H 05/29/18 16:00 92 H 117/68 05/28/18 16:00 82 131/81 05/27/18 06:14 98.2 F 70 16 133/77 05/26/18 17:45 98.5 F 90 18 126/85 100 05/26/18 15:02 76 18 107/74 100 05/26/18 13:45 72 16 110/72 99 05/26/18 12:30 77 16 122/69 100 05/26/18 10:32 97.9 F 82 16 129/82 99 05/26/18 05:00 77 16 127/71 97 05/26/18 03:00 76 18 124/72 97 05/26/18 00:45 80 18 127/82 98 05/25/18 23:45 98.1 F 89 18 137/84 98 Consultations:: List each consultation separately and include: 1. Reason for request. 2. Findings. 3. Follow-up Consultations: Medical consult appreciated Please see notes for details Summary of Hospital Course include:: 1. Description of specific treatment plan utilized for patients during their course of treatmen. 2. Summarize the time- course for resolution of acute symptoms and/or regressed behaviors. 3. Describe issues identified and worked on during hospitalization. 4. Describe medication utilized. 5. Describe medical problems identified and treated. 6. Reassessment of suicide risk Summary of Hospital Course: shortly pt is 27 yo female with not known previous psych h/o, came to the ED with c/o 1 episode of clear vaginal discharge, abdominatl pain, pt was cleared by medical team, after that in ED pt reported "not feeling safe, hearing voices", PES was called, pt was in catatonic stage, was not able to provide any h/o, [facility] was contacted for involuntary commitment, pt was not accepted by [facility], this wrier evaluated pt in ED, pt presented to be disorganized, poor hygiene, said that she is hearing voices "hang yourself-kill yourself", pt required further evaluation and stabilization, med management, observation. Please see admission note for more detailed information. Collateral was obtained from patient's sister, history of schizophrenia, chronic noncompliance with her medications and follow-up appointments, patient has history of state hospitalizations. Please see social security benefits interviewer notes for more detailed information. Patient was stabilized on the following medications: Risperdal 2 mg 3 times a day Ativan 0.5 mg at the nighttime for catatonia and sleep Trazodone 50 mg at the nighttime for depression and insomnia This freelance copywriter wanted to give injectable form of the medication, but due to the fact that patient has no insurance, IM/outpatient will be problematic. pt is willing to continue PO form of meds. Patient tolerated medications well, no side effects observed or reported, aims 0, no EPS. Overall patient improved, less psychotic, patient was socializing with others, compliant with her medications, attending groups, at the same time patient fill out social security benefits interviewer to refer her to [facility] services, but patient refused to give consent to give a call to child protective services for collateral/further assistance. please see SW notes for more detailed info. Patient has no insurance, patient would need to have extra support in the community, that is why [facility] services was involved. Overall pt improved significantly, pt's affect became brighter, pt was less depressed, has realistic future oriented plans, less psychotic, pt was socially appropriate, no behavioral issues, pts insight improved as well and soon pt deemed to be ready for discharge. At the time of the discharge patient pose no imminent danger to self or others, will be following up at [facility] clinic, information about follow up appointment, time and address provided to the pt, (see SW note for more detailed information). It is a patient responsibility to follow up with outpatient clinic, PMD as well as specialists In case patient will need to obtain results of studies pending at discharge, patient was provided with contact information of Psychiatric Inpatient unit [phone] as well as Medical Record Department [phone], as well as [facility] team [phone]. Patient denied smoking, denies using drugs pt was provided with prescriptions (see medication reconciliation form) Pt was educated about safety plan in case of worsening of symptoms or in case of suicidal or homicidal ideation call 911 or go to the nearest ER, also was educated to take meds as prescribed and stay away from drugs, pt verbalized understanding. 05/26/18 02:08 05/26/18 02:08 Lab Results 05/27/18 07:40: Fasting Glucose 95, Triglycerides 81, Cholesterol 158, LDL Cholesterol Direct 87, HDL Cholesterol 48 05/27/18 07:20: TSH 3rd Generation 0.35 L 05/26/18 02:08: Alcohol, Quantitative < 10 05/26/18 02:08: Salicylates < 1 L, Acetaminophen < 10.0 L 05/26/18 02:08: Sodium 140, Potassium 3.8, Chloride 105, Carbon Dioxide 27, Anion Gap 12, BUN 14, Creatinine 0.8, Est GFR ( Amer) > 60, Est GFR (Non- Af Amer) > 60, Random Glucose 78, Calcium 9.8, Magnesium 2.0, Total Bilirubin 0.3, AST 24, ALT 7, Alkaline Phosphatase 90, Total Protein 8.5 H, Albumin 4.6, Globulin 3.9, Albumin/Globulin Ratio 1.2 05/26/18 02:08: WBC 11.5 H, RBC 5.25, Hgb 11.7 L, Hct 37.5, MCV 71.4 L, MCH 22.3 L, MCHC 31.2, RDW 14.8 H, Plt Count 334, MPV 9.9, Neut % (Auto) 52.6, Lymph % (Auto) 39.8 H, [place] % (Auto) 5.1, Eos % (Auto) 2.1, Baso % (Auto) 0.4, Lymph # (Auto) 4.6 H, [place] # (Auto) 0.6, Eos # (Auto) 0.2, Baso # (Auto) 0.05, Absolute Neuts (auto) 6.04 05/26/18 02:00: Urine Opiates Screen Negative, Urine Methadone Screen Negative, Ur Barbiturates Screen Negative, Ur Phencyclidine Scrn Negative, Ur Amphetamines Screen Negative, U Benzodiazepines Scrn Negative, U Oth Cocaine Metabols Negative, U Cannabinoids Screen Positive H 05/25/18 23:50: Urine Color Yellow, Urine Appearance Clear, Urine pH 6.0, Ur Specific [place] >= 1.030, Urine Protein Negative, Urine Glucose (UA) Negative, Urine Ketones Negative, Urine Blood Trace-intact H, Urine Nitrate Negative, Urine Bilirubin Negative, Urine Urobilinogen 0.2, Ur Leukocyte Esterase Negative, Urine RBC 0 - 2, Urine WBC 1 - 3, Ur Epithelial Cells 4 - 5, Urine Bacteria Small Vital Signs Temp Pulse Resp BP Pulse Ox 05/27/18 06:14 98.2 F 70 16 133/77 05/26/18 17:45 98.5 F 90 18 126/85 100 05/26/18 15:02 76 18 107/74 100 05/26/18 13:45 72 16 110/72 99 05/26/18 12:30 77 16 122/69 100 05/26/18 10:32 97.9 F 82 16 129/82 99 05/26/18 05:00 77 16 127/71 97 05/26/18 03:00 76 18 124/72 97 05/26/18 00:45 80 18 127/82 98 05/25/18 23:45 98.1 F 89 18 137/84 98 - Diagnosis (1) Schizophrenia Status: Acute - Final Diagnosis (DSM 5) Condition upon Discharge: GOOD Disposition: HOME/ ROUTINE Follow-up Treatment Plan: At the time of the discharge patient pose no imminent danger to self or others, will be following up at [facility] clinic, information about follow up appointment, time and address provided to the pt, (see SW note for more detailed information). It is a patient responsibility to follow up with outpatient clini c, PMD as well as specialists In case patient will need to obtain results of studies pending at discharge, patient was provided with contact information of Psychiatric Inpatient unit [phone] as well as Medical Record Department [phone], as well as [facility] team [phone]. Patient denied smoking, denies using drugs pt was provided with prescriptions (see medication reconciliation form) Pt was educated about safety plan in case of worsening of symptoms or in case of suicidal or homicidal ideation call 911 or go to the nearest ER, also was educated to take meds as prescribed and stay away from drugs, pt verbalized understanding. Prescriptions/Medication Reconciliation: LORazepam [Ativan] 0.5 mg PO HS #7 tab risperiDONE [RisperDAL Tab] 2 mg PO TID #45 tab traZODone [Desyrel] 50 mg PO HS PRN #14 tab PRN Reason: mood/ Insomnia - Smoking Cessation Smoking Cessation Medication prescribed: No - Antipsychotic Medications Pt discharged on 2 or more routine antipsychotic medications: No
== END 2018-06-07 13:04 | disposition home or self-care (01) | DRG 757 ==
LOC: ED 23:26 → ERH 05-26 12:50 → PSYC 05-26 17:36
PROVIDERS: ADMIT Psychiatry & Neurology Psychiatry; ATTEND Psychiatry & Neurology Psychiatry
DX: F53.0 Postpartum depression (principal); F53.1 Puerperal psychosis; R45.851 Suicidal ideations; Z76.5 Malingerer [conscious simulation]; Z91.14 Patient's other noncompliance with medication regimen; D72.829 Elevated white blood cell count, unspecified; F17.210 Nicotine dependence, cigarettes, uncomplicated; G47.00 Insomnia, unspecified; N89.8 Other specified noninflammatory disorders of vagina; Z59.0 Homelessness; Z98.891 History of uterine scar from previous surgery